=== PATIENT | female | born 1940 | race Caucasian/White ===

== ENCOUNTER 2022-07-10 17:47 | Observation (INO) | payer MEDICARE, SELFPAY ==
--- NOTE | ~2022-07-10 | XR_ITS ---
EXAMINATION: XR chest 1V portable DATE: 07/10/2022 18:17 INDICATION: Hypertension. Dizziness, headache and weakness. TECHNIQUE: frontal view of the chest was obtained. COMPARISON: None FINDINGS: Mild right apical pleural-parenchymal scarring. Opacities at the left lower lung zone which could rep resent atelectasis or pneumonia. Mild linear atelectasis the lateral right midlung zone. No pleural e ffusion or pneumothorax. The cardiomediastinal silhouette is normal. Dual lead pacemaker seen with le ads projecting over the expected locations of the right atrium and right ventricle. There are bridgin g osteophytes at multiple levels in the spine, consistent with diffuse idiopathic skeletal hyperostos is (DISH). IMPRESSION: 1. Mild opacities at the left lower lung zone which could represent atelectasis or pneumonia. Reviewed, dictated and finalized at location A.
--- NOTE | ~2022-07-10 | CT_ITS ---
EXAMINATION: CT brain wo con DATE: 07/10/2022 18:40 INDICATION: Dizziness. Altered mental status. TECHNIQUE: Computed tomography (CT) of the head was performed without intravenous contrast. Sagittal and coronal reconstructions were performed. The mA was adjusted according to patient size. Iterative reconstruction technique was employed. The dose-length product was 605.33 mGy-cm. COMPARISON: None FINDINGS: No acute intracranial hemorrhage, acute infarction or abnormal extra axial fluid collection. There is mild scattered white matter hypoattenuation consistent with chronic small vessel ischemic disease. S ymmetric prominence of the sulci and subarachnoid spaces overlying the convexities consistent with mi ld age-appropriate diffuse cerebral volume loss. Ventricles are normal and symmetric. No mass/mass ef fect. Changes of bilateral intraocular lens replacement. The orbits, paranasal sinuses and mastoid ai r cells are normal. Intracranial calcified cerebral atherosclerosis is noted. IMPRESSION: 1. No acute intracranial process. 2. Age-related changes including mild diffuse volume loss and mild scattered white matter hypoattenua tion consistent with chronic small vessel ischemic disease. Reviewed, dictated and finalized at location A. IMPRESSION: 1. No acute intracranial process. 2. Age-related changes including mild diffuse volume loss and mild scattered wh ite matter hypoattenuation consistent with chronic small vessel ischemic diseas e.
--- NOTE | ~2022-07-10 | CT_ITS ---
EXAMINATION: CTA BRAIN/CAROTID DATE: 07/10/2022 21:42 INDICATION: Aphasia and dizziness. TECHNIQUE: Computed tomographic angiography (CTA) of the head and neck was performed with 100 mL Omni paque-350 intravenous contrast. Multiplanar reconstructions and maximum intensity projection 3D-recon structions of the carotid arteries and of the intracranial arteries were created by the technologist on a separate workstation. Automated exposure control and iterative reconstruction technique were emp loyed.The dose-length product was 1005.43 mGy-cm. COMPARISON: Head CT dated 07/10/2022 at 6:31 PM FINDINGS: Carotid arteries: Atherosclerotic calcifications along the normal caliber aortic arch and at the origins of the great v essels without hemodynamically significant stenosis or dissection. There is 60% stenosis of the right carotid bulb relative to normal distal artery lumen diameter (NASCET criteria). There is 70% stenosi s of the left carotid bulb relative to normal distal artery lumen diameter. Cervical soft tissues are unremarkable. Mild emphysema in the visualized portions of the mid to upper lungs. Superior mediasti num is unremarkable. Moderate to severe cervical spondylosis. Intracranial arteries Extensive atherosclerotic calcifications along the parotid carotid siphons without hemodynamically si gnificant stenosis. There is no hemodynamically significant stenosis in the vertebral, basilar and in ternal carotid arteries. Vertebral arteries are codominant. 2 x 3 mm saccular aneurysm arising from t he supraclinoid segment of the left internal carotid artery. Both A1 and P1 segments are patent. The re is also a patent anterior communicating artery. Cerebral arterial arborization appears symmetric. No abnormally enhancing brain lesions identified. IMPRESSION: 1. 60% stenosis of the right carotid bulb relative to normal distal artery lumen diameter (NASCET cri teria). 2. 70% stenosis of the left carotid bulb relative to normal distal artery lumen diameter. 3. No significant hemodynamically significant stenosis of the cerebral arteries. 4. 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 5. Mild emphysema. 6. Moderate to severe cervical spondylosis. Reviewed, dictated and finalized at location A. IMPRESSION: 1. 60% stenosis of the right carotid bulb relative to normal distal artery lume n diameter (NASCET criteria). 2. 70% stenosis of the left carotid bulb relative to normal distal artery lumen diameter. 3. No significant hemodynamically significant stenosis of the cerebral arteries . 4. 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 5. Mild emphysema. 6. Moderate to severe cervical spondylosis.
[2022-07-10 17:54] VITALS: BP 179/74; PULSE 76; RESP 18; TEMP 36.4; O2SAT 98
--- NOTE | 2022-07-10 17:55 | ECG_ITS ---
Measurements Intervals [place] Rate: 77 P: 85 MN: 257 QRS: -21 QRSD: 118 T: 63 QT: 398 QTc: 453 Interpretive Statements ELECTRONIC ATRIAL PACEMAKER INTRAVENTRICULAR CONDUCTION DELAY CANNOT RULE OUT SEPTAL INFARCT, AGE INDETERMINATE INFERIOR INFARCT, AGE INDETERMINATE BORDERLINE ST-T WAVE ABNORMALITY- HIGH LATERAL LEADS BASELINE ARTIFACT- I, II, III, AVR, AVL, AVF ABNORMAL ECG NO PREVIOUS ECG AVAILABLE FOR COMPARISON Electronically Signed On 07-10-2022 21:53:21 CDT by Derrick Martin D.O.
[2022-07-10 18:34] LABS: Hemoglobin 14.1 g/dL (12.0-15.0); Mean Corpuscular HGB Conc 32.8 g/dl (32-36); Mean Corpuscular Hemoglobin 31.2 pg (26-34); Mean Corpuscular Volume 95.1 fl (80-100); Mean Platelet Volume 9.3 fl (7.4-10.4); Platelet Count Result 272 k/mm3 (150-375); Red Blood Count 4.52 M/mm3 (4.2-5.4); Red Cell Distribution Width 14.3 % (11.5-14.5); White Blood Count 6.8 K/mm3 (4.5-10.0)
[2022-07-10 18:46] LABS: INR 1.9; Prothrombin Time 20.7 Seconds (11.1-14.7)
[2022-07-10 18:47] LABS: Alanine Aminotransferase 35 U/L (6-35); Albumin Level 4.7 g/dL (3.5-5.1); Alkaline Phosphatase 119 U/L (38-126); Anion Gap 14 mmol/L (8-16); Aspartate Amino Transferase 46 U/L (14-36); Bilirubin,Total 0.4 mg/dL (0.2-1.3); Blood Urea Nitrogen 25 mg/dL (7-17); Calcium 9.4 mg/dL (8.4-10.2); Carbon Dioxide 26 mmol/L (22-30); Chloride 97 mmol/L (98-107); Estimated CRCL calculation 37 ml/min; Estimated Glomerular Filt Rate 60; Glucose 97 mg/dL (65-110); Partial Thromboplastin Time 45.2 SECONDS (22.3-36.8); Potassium 4.2 mmol/L (3.4-5.0); Sodium 137 mmol/L (137-145)
[2022-07-10 18:49] VITALS: BP 166/77; PULSE 75; RESP 16; O2SAT 98
[2022-07-10 18:58] LABS: Troponin I < 0.012 ng/mL (0.000-0.034)
[2022-07-10 19:00] LABS: Band Neutrophils Percent 1 % (0-6); Basophils Absolute Manual 0.06 K/mm3 (0.0-0.1); Basophils Percent Manual 1 % (0-1); Lymphocytes Absolute Manual 2.04 K/mm3 (1.1-4.5); Lymphocytes Percent Manual 30 % (18-44); Monocytes Absolute Manual 1.08 K/mm3 (0.1-0.90); Monocytes Percent Manual 16 % (3-9); Neutrophils Percent Manual 52 % (46-73); Platelet Estimate Adequate (Adequate); Total Cells Counted 100
[2022-07-10 19:01] LABS: Schistocytes None Seen (NORMAL)
--- NOTE | 2022-07-10 19:09 | ED.GENADULT ---
HPI - General Adult General Chief complaint: Neuro Symptoms/Deficit <Melinda Rod PA-C - Last Filed: 07/11/22 02:41> Stated complaint: possible stroke - dizzy headache- dont feel good <NALLELY Londono Last Filed: 07/11/22 02:41> Time Seen by Provider: 07/10/22 18:19 <NALLELY Londono Last Filed: 07/11/22 02:41> Source: patient <NALLELY Londono Last Filed: 07/11/22 02:41> Mode of arrival: ambulatory <NALLELY Londono Last Filed: 07/11/22 02:41> Limitations: no limitations <NALLELY Londono Last Filed: 07/11/22 02:41> History of Present Illness HPI narrative: Patient is an 81-year-old female who presents the ED with multiple complaints. Patient reports she has not felt well for the past couple days. She reports having dizziness, described as though her equilibrium is off and at times as though the room is spinning. She also reports having an intermittent headache, nausea, anorexia, general malaise, and aphasia, described as though she has trouble finding her words at times. She denies any fever, focal weakness of arm or leg, chest pain, difficulty breathing, new cough, congestion, abdominal pain, vomiting, diarrhea, numbness, tingling, vision changes, difficulty swallowing, tinnitus, otalgia. <NALLELY Londono Last Filed: 07/11/22 02:41> Related Data Home medications: Home Medications Medication Instructions Recorded Confirmed atorvastatin 10 mg tablet 10 mg PO HS 07/10/22 07/10/22 fluticasone furoate 200 1 inh inhalation DAILY 07/10/22 07/10/22 mcg-vilanterol 25 mcg/dose inhalation powder (Breo Ellipta) hydrochlorothiazide 12.5 mg capsule 12.5 mg PO DAILY 07/10/22 07/10/22 losartan 25 mg tablet 25 mg PO DAILY 07/10/22 07/10/22 montelukast 10 mg tablet 10 mg PO HS 07/10/22 07/10/22 (Singulair) tramadol 50 mg tablet 50 mg PO Q6-8H 07/10/22 07/10/22 verapamil 180 mg tablet,extended 180 mg PO BID 07/10/22 07/10/22 release <NALLELY Londono Last Filed: 07/11/22 02:41> Allergies/adverse reactions: Allergies Allergy/AdvReac Type Severity Reaction Status Date / Time No Known Allergies Allergy Verified 07/10/22 17:56 <Melinda Rod PA-C - Last Filed: 07/11/22 02:41> Review of Systems Review of Systems: CONSTITUTIONAL: Reports malaise, anorexia. Denies fever, chills, or sweats. EYES: Denies visual changes. ENT: Denies rhinorrhea, congestion, sore throat, tinnitus, or otalgia. CARDIOVASCULAR: Denies chest pain, palpitations. RESPIRATORY: Denies cough or dyspnea. GASTROINTESTINAL: Reports nausea. Denies abdominal pain, vomiting, or diarrhea. GENITOURINARY: Denies dysuria or hematuria. NEUROLOGIC: Reports dizziness, headache, aphasia/word finding difficulty. Denies tingling, numbness, or focal weakness. <NALLELY Londono Last Filed: 07/11/22 02:41> All systems reviewed & are unremarkable except as noted in HPI and below <NALLELY Londono Last Filed: 07/11/22 02:41> PMFSH Past Medical History Medical History: Medical History Atrial fibrillation COPD (chronic obstructive pulmonary disease) History of pacemaker Hyperlipidemia Hypertension <NALLELY Londono Last Filed: 07/11/22 02:41> Surgical History Surgical History: Surgical History History of permanent cardiac pacemaker placement <NALLELY Londono Last Filed: 07/11/22 02:41> Family History Family History: Family History Father Acute myocardial infarction Mother Lung cancer <Melinda Rod PA-C - Last Filed: 07/11/22 02:41> Social History Social History: Social History Smoking status: Former smoker Alcohol intak
[2022-07-10 19:29] LABS: Appearance Urine Cloudy (Clear); Bilirubin Urine Negative (Negative); Blood Urine Trace-intact (Negative); Color Urine Yellow (Yellow); Glucose Urine UA Negative (Negative); Ketones Urine Trace mg/dL (Negative); Leukocyte Esterase Ur 3+ LEU/UL (Negative); Nitrate Urine Negative (Negative); Protein Urine 1+ mg/dL (Negative); Urobilinogen Urine 0.2 mg/dL (<2.0)
[2022-07-10] MEDS: SODIUM CHLORIDE 0.9% IV 1,000 ML 999 ML IV CONT (19:35)
[2022-07-10 19:42] LABS: Add Urine Microscopic? YES; Amorphous Sediment Urine Few; Bacteria Urine Trace /hpf; Mucus Urine Rare /lpf; Squamous Epithelial Cell Urine Few /hpf (Few); WBC Clumps Urine Present /HPF; WBC Urine >75 /hpf
--- NOTE | 2022-07-10 22:11 | PM.IMHP ---
H&P: HPI History of Present Illness Date/Time: 07/10/22 22:11 Chief Complaint: imbalance Narrative: This is an 81-year-old female with past medical history significant for dyslipidemia, asthma /COPD, hypertension, atrial fibrillation. patient presents to the emergency room due to imbalance, headache, lightheadedness, chills. Preliminary workup in the emergency room was significant for urinalysis with 75+ wbc's present per high power field. She had a blood pressure systolic in the 200s at home, no vision changes, no chest pain, no palpitations, no syncope, no near syncope, no leg swelling, no pedal swelling, no pain or burning with urination, no nausea, no vomiting, no abdominal pain. a CT angiogram of head and neck was reported as: IMPRESSION: 1. 60% stenosis of the right carotid bulb relative to normal distal artery lumen diameter (NASCET criteria). 2. 70% stenosis of the left carotid bulb relative to normal distal artery lumen diameter. 3. No significant hemodynamically significant stenosis of the cerebral arteries. 4. 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 5. Mild emphysema. 6. Moderate to severe cervical spondylosis. CT of head IMPRESSION: 1. No acute intracranial process. 2. Age-related changes including mild diffuse volume loss and mild scattered white matter hypoattenuation consistent with chronic small vessel ischemic disease. Review of Systems Review of Systems: patient presents to emergency room with complaints of imbalance, chills, headache, elevated systolic blood pressure. Constitutional: Constitutional: Reports chills, Denies fever(s), Reports malaise, Denies night sweats, Reports poor appetite and Reports weakness Eyes: Eyes: Denies change in vision ENT: Denies dysphagia, Denies vertigo, Denies dizziness, Denies odynophagia and Reports disequilibrium Cardiovascular: Cardiovascular: Denies chest pain, Denies syncope, Denies irregular heart rhythm, Reports lightheadedness, Denies palpitations and Denies dyspnea on exertion Respiratory: Respiratory: Reports chest congestion, Reports cough, Denies excessive phlegm production, Denies pain on inspiration, Denies dyspnea and Denies dyspnea on exertion Gastrointestinal: Gastrointestinal: Denies abdominal pain, Denies dyspepsia, Denies heartburn, Denies diarrhea, Denies nausea and Denies vomiting Genitourinary: Genitourinary: Denies dysuria Musculoskeletal: Musculoskeletal: Reports abnormal gait, Denies joint swelling, Denies muscle weakness and Denies numbness Integumentary/Breasts: Skin/Breast: Denies rash Neurologic: Denies vertigo, Denies dizziness, Denies focal weakness and Denies Sensory deficit (Neuro) Psychiatric: Psychiatric: Reports no additional psychiatric complaints and Reports as per HPI Endocrine: Endocrine: Denies cold intolerance, Denies flushing, Denies heat intolerance, Denies polyphagia, Denies polydipsia and Denies palpitations Hematologic/Lymphatic: Hematologic/Lymphatic: Reports no additional hematologic/lymphatic complaints and Reports as per HPI Allergic/Immunologic: Allergic/Immunologic: Reports no additional allergic/immunologic complaints and Reports as per HPI PMFSH Past Medical History Medical History (Updated 07/11/22 @ 00:25 by Mason Hurtado MD) Atrial fibrillation COPD (chronic obstructive pulmonary disease) History of pacemaker Hyperlipidemia Hypertension Surgical History Surgical History (Updated 07/10/22 @ 20:16 by Melinda Rod PA-C) History of permanent cardiac pacemaker placement Family History Family History (Updated 07/10/22 @ 22:32 by Ivelisse Vera RN) Father Acute myocardial infarction Mother Lung cancer Social History Social History (Updated 07/10/22 @ 20:17 by Melinda Rod PA-C) Smoking status: Former smoker Alcohol intake: current Substance use: never Spiritual care concerns: No Meds Home Medications and
[2022-07-10 22:13] VITALS: BP 170/80; PULSE 82; RESP 16; O2SAT 100
--- NOTE | 2022-07-10 22:14 | PC.NURSE ---
Patient stated, You obviously don't know what your doing. I hate being here and you should never tell a person I hope you get better soon when you know someone doesn't feel good.
--- NOTE | 2022-07-10 22:30 | ADMGEN ---
This patient, Nichole Saucedo, was admitted to Medical Room 348-01. Patient/family oriented to hospital policies and general routines including ID bracelet, bed and alarms, visiting hours, pain management, procedures, bathroom and other care routines, personal items, smoking policy, room service/diet, and visiting hours. Information on how to activate the Rapid Response Team has been discussed. Patient/Family are encouraged to report perceived risks to care and to ask questions if they do not understand what they are told or what they should do.
[2022-07-10 22:31] VITALS: BMI 22.4
[2022-07-10] MEDS: VERAPAMIL HCL 180 MG TABLET ER PO (22:56)
[2022-07-11] VITALS: PULSE 73
--- NOTE | 2022-07-11 | ECHO_ITS ---
Patient Info Name: Nichole Saucedo Age: 81 years : 1940 Gender: Female Ht: 64 in Wt: 130 lbs BSA: 1.64 m2 HR: 90 bpm BP: 142 / 46 mmHg Technical Quality: Good Exam Date: 07/11/2022 3:07 PM Exam Location: [facility] Patient Status: Outpatient Admit Date: 07/10/2022 Staff Ordering Physician: Belinda Jimenez MD Lottery Office Manager: Kodak Gan RDCS, RT Attending Provider: Mason Hurtado MD Exam Type: CA echo doppler w bubble study Study Info Indications R42 - Dizziness and giddiness Complete two-dimensional, color flow and Doppler transthoracic echocardiogram is performed. Strain analysis performed. Summary 1. Complete two-dimensional, color flow and Doppler transthoracic echocardiogram is performed. 2. Left ventricular chamber dimension is normal. 3. Left ventricular systolic function is normal, estimated at 60-65%. 4. There is mildly increased left ventricular wall thickness. 5. The left ventricular diastolic function is grade I diastolic dysfunction. 6. E/e' 8 is minimally elevated. 7. Global longitudinal strain is normal at -18.0%. 8. Linear artifact in right ventricle suggestive of catheter(s), pacemaker lead(s), or ICD lead(s). 9. Linear artifact in the right atrium suggestive of catheter(s), pacemaker lead(s), or ICD lead(s). 10. There is mild aortic valve sclerosis. 11. There is mild aortic valve regurgitation. 12. There is trace tricuspid valve regurgitation. 13. No pulmonary hypertension, estimated pulmonary arterial systolic pressure is 26 mmHg. Left Ventricle E/e' 8 is minimally elevated. Global longitudinal strain is normal at -18.0%. Left ventricular chamber dimension is normal. Left ventricular systolic function is normal, estimated at 60-65%. There is mildly increased left ventricular wall thickness. The left ventricular diastolic function is grade I diastolic dysfunction. Right Ventricle Right ventricular systolic function is normal and with normal TAPSE 2.0 cm. Linear artifact in right ventricle suggestive of catheter(s), pacemaker lead(s), or ICD lead(s). Right ventricular chamber dimension is normal. Left Atria Left atrial chamber dimension is normal. Right Atria Linear artifact in the right atrium suggestive of catheter(s), pacemaker lead(s), or ICD lead(s). Right atrial chamber dimension is normal. Atrial Septum Agitated saline injection with and without valsalva maneuver opacified right side cardiac chambers without shunt to left side cardiac chambers. Intact interatrial septum visualized by 2D and agitated saline imaging. Aortic Valve The aortic valve is trileaflet. There is mild aortic valve sclerosis. There is no aortic valve stenosis. There is mild aortic valve regurgitation. Pulmonic Valve There is no pulmonic regurgitation. Mitral Valve There is no mitral valve stenosis. There is no mitral valve regurgitation. Tricuspid Valve There is trace tricuspid valve regurgitation. No pulmonary hypertension, estimated pulmonary arterial systolic pressure is 26 mmHg. Pericardium/Pleural There is no pericardial effusion. Inferior Vena Cava Normal inferior vena cava with >50% collapse upon inspiration consistent with normal right atrial pressure, 5 mmHg. Aorta The aortic root size at the sinus of Valsalva is normal. Left Ventricular Outflow Tract Name Value Normal
[2022-07-11 04:00] VITALS: PULSE 70
[2022-07-11 05:20] LABS: INR 1.7; Prothrombin Time 19.6 Seconds (11.1-14.7)
[2022-07-11 06:00] VITALS: BP 142/46; PULSE 82; RESP 16; TEMP 36.7; O2SAT 97
[2022-07-11] MEDS: FLUTICASONE/SALMETEROL 230-21 MCG INHALER 1 PUFF 2 PUFF INHALATION (08:28)
--- NOTE | 2022-07-11 08:41 | WPDNEURCNPN ---
Assessment and Plan Assessment and plan (1) Imbalance: Code(s): R26.89 - Other abnormalities of gait and mobility Status: Acute Assessment and Plan: Ms. Saucedo is an 81 year old female with a history of atrial fibrillation and COPD presenting with several day history of dizziness. She was found to have a UTI. CT head negative, CTA showed bilateral carotid stenosis. Exam significant for horizontal nystagmus. No other focal findings. Plan - Recommend MRI brain w/o contrast if pacemaker is MRI compatible - Refer to outpatient vestibular PT - Follow-up in [facility] in 6-8 weeks Consult date: 07/11/22 Time Seen: 08:41 Reason for consult: dizziness HPI: Nichole Saucedo is a 81 year old female with a history of atrial fibrillation presenting with dizziness that started two days ago. She describes the sensation as the room spinning. She has also been having some word-finding difficulties as well. She was evaluated in [place] ED where she had a CT head was negative for acute/subacute changes and CTA head/neck showed 60% stenosis in the R carotid bulb and 70% stenosis of the left carotid bulb. She was found to have a UTI and started on Rocephin. She was also noted to have bilateral cerumen impaction which was cleaned out. She denies any other symptoms such as diplopia, dysathria, dysphagia, focal numbness/weakness. She feels less dizzy this AM, but still has some dizziness. Review of Systems Constitutional: Constitutional: Reports no additional constitutional complaints Eyes: Eyes: Reports no additional eye complaints ENT: Reports system reviewed and no additional complaints, except as documented and Reports Normal hearing present Cardiovascular: Cardiovascular: Reports no additional cardiovascular complaints Respiratory: Respiratory: Reports no additional respiratory complaints Gastrointestinal: Gastrointestinal: Reports no additional gastrointestinal complaints Genitourinary: Genitourinary: Reports no additional female genitourinary complaints Musculoskeletal: Musculoskeletal: Reports no additional musculoskeletal complaints Integumentary/Breasts: Skin/Breast: Reports system reviewed and no additional complaints, except as docu Neurologic: Reports as per HPI Psychiatric: Psychiatric: Reports no additional psychiatric complaints [facility] Past Medical History Medical History Atrial fibrillation COPD (chronic obstructive pulmonary disease) History of pacemaker Hyperlipidemia Hypertension Surgical History Surgical History History of permanent cardiac pacemaker placement Family History Family History Father Acute myocardial infarction Mother Lung cancer Social History Social History Smoking status: Former smoker Alcohol intake: current Substance use: never Spiritual care concerns: No Meds Home Medications and Allergies Home Medications Medication Instructions Recorded Confirmed Type atorvastatin 10 mg tablet 10 mg PO HS 07/10/22 07/10/22 History fluticasone furoate 200 1 inh inhalation DAILY 07/10/22 07/10/22 History mcg-vilanterol 25 mcg/dose inhalation powder (Breo Ellipta) hydrochlorothiazide 12.5 mg capsule 12.5 mg PO DAILY 07/10/22 07/10/22 History losartan 25 mg tablet 25 mg PO DAILY 07/10/22 07/10/22 History montelukast 10 mg tablet 10 mg PO HS 07/10/22 07/10/22 History (Singulair) tramadol 50 mg tablet 50 mg PO Q6-8H 07/10/22 07/10/22 History verapamil 180 mg tablet,extended 180 mg PO BID 07/10/22 07/10/22 History release warfarin 2 mg tablet 2 mg PO EVERY OTHER DAY 07/10/22 07/10/22 History warfarin 2.5 mg tablet 2.5 mg PO EVERY OTHER DAY 07/10/22 07/10/22 History Allergies Allergy/AdvReac Type Severity Reaction Status Date / Time No Known
[2022-07-11 09:15] VITALS: PULSE 70
[2022-07-11] MEDS: LOSARTAN POTASSIUM 25 MG TABLET PO (10:03)
[2022-07-11] MEDS: hydroCHLOROthiazide 12.5 MG CAPSULE PO (10:03)
[2022-07-11] MEDS: VERAPAMIL HCL 180 MG TABLET ER PO (10:03)
--- NOTE | 2022-07-11 10:12 | PC.NURSE ---
Pt insisting she should walk the cuevas because she is deteriorating . She was found out of her room and argumentative about returning to he room. She insist she feels much better and would like to return home. She has requested to no longer wear the heart monitor and it was removed at 10:10
[2022-07-11 14:00] VITALS: BP 153/63; PULSE 79; RESP 16; TEMP 35.9; O2SAT 100
--- NOTE | 2022-07-11 16:08 | PM.DS ---
DS: Admitting Diagnosis Discharge Date 07/11/2022 Admitting Diagnosis imbalance DS: Discharge Diagnosis Discharge Diagnosis (1) UTI (urinary tract infection): Code(s): N39.0 - Urinary tract infection, site not specified Status: Acute Assessment and Plan: started on ceftriaxone await cultures (2) Imbalance: Code(s): R26.89 - Other abnormalities of gait and mobility Status: Acute Assessment and Plan: CTA of head and neck reviewed no large vessel occlusion CT of the head no acute abnormalities PT OT when clinically able (3) COPD (chronic obstructive pulmonary disease): Code(s): J44.9 - Chronic obstructive pulmonary disease, unspecified Status: Acute Assessment and Plan: not actively wheezing (4) Atrial fibrillation: Code(s): I48.91 - Unspecified atrial fibrillation Status: Acute Assessment and Plan: rate controlled and anticoagulated (5) Uncontrolled hypertension: Code(s): I10 - Essential (primary) hypertension Status: Acute Assessment and Plan: restart home meds DS: Summary Hospital Course Reason for hospitalization: Chief Complaint: ?imbalance Narrative: This is an 81-year-old female with past medical history significant for dyslipidemia, asthma /COPD, hypertension, atrial fibrillation. patient presents to the emergency room due to? imbalance, headache, lightheadedness, chills.? Preliminary workup in the emergency room was significant for urinalysis with 75+ wbc's present per high power field.? She had a blood pressure systolic in the 200s at home, no vision changes, no chest pain, no palpitations, no syncope, no near syncope, no leg swelling, no pedal swelling, no pain or burning with urination, no nausea, no vomiting, no abdominal pain. a CT angiogram of head and neck was reported as: IMPRESSION: 1. 60% stenosis of the right carotid bulb relative to normal distal artery lumen diameter (NASCET criteria). 2. 70% stenosis of the left carotid bulb relative to normal distal artery lumen diameter. 3. No significant hemodynamically significant stenosis of the cerebral arteries. 4. 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 5. Mild emphysema. 6. Moderate to severe cervical spondylosis. ?CT of head IMPRESSION: 1. No acute intracranial process. 2. Age-related changes including mild diffuse volume loss and mild scattered white matter hypoattenuation consistent with chronic small vessel ischemic disease. Hospital Course: Patient is insisting to be discharged today, patient INR is subtherapeutic, will stop warfarin and start patient on Eliquis 2.5mg daily, will give 1st dose today before discharging her, neurologist has refer patient to vestibular PT, patient to follow up with neurologist in 6-8 weeks, patient to follow up with her primary care provider as soon as possible, patient is instructed if any symptoms redevelop to go to nearest ER. Time Spent with Patient Time attestation: Total time spent providing and/or coordinating discharge services: Exam Narrative: patient is ambulating in the room Patient is comfortable, NAD HEENT: eyes are clear and none icteric LUNGS: normal respiratory effort ABD: not distended Lower extremities: no edema SKIN: nonjaundiced Neuro: grossly intact. DS: Data Data Completed and Pending Labs on day of discharge: Labs from last 24 hours 07/11/22 07/10/22 07/10/22 05:01 19:23 18:27 WBC RBC Hgb Hct MCV MCH MCHC RDW Plt Count MPV Immature Gran % (Auto) Neut % (Auto) Lymph % (Auto) Jessamine % (Auto) Eos % (Auto) Baso % (Auto) Lymph # (Auto) Jessamine # (Auto) Eos # (Auto) Baso # (Auto) Abs Immat Gran (auto) Absolute Neuts (auto) Absolute Nucleated RBC Total Counted Neutrophils % (Manual) Band Neutrophils % Lymphocytes % (Manual) Monocyte
[2022-07-11] MEDS: ASPIRIN 81 MG ENTERIC TABLET PO (16:41)
[2022-07-11] MEDS: APIXABAN 2.5 MG TABLET PO (16:41)
== END 2022-07-11 17:10 | disposition home or self-care (01) ==
LOC: ANHED 21:28 → ANH3MED 22:18
PROVIDERS: Physician Assistant; Admitting Provider Internal Medicine; Emergency Provider General Practice; Visit Provider Family Medicine
DX: N30.01 Acute cystitis with hematuria (principal); R26.89 Other abnormalities of gait and mobility; J44.9 Chronic obstructive pulmonary disease, unspecified; I48.91 Unspecified atrial fibrillation; I51.89 Other ill-defined heart diseases; R47.01 Aphasia; R51.9 Headache, unspecified; R11.0 Nausea; R63.0 Anorexia; Z68.22 Body mass index [BMI] 22.0-22.9, adult; E78.5 Hyperlipidemia, unspecified; I65.23 Occlusion and stenosis of bilateral carotid arteries; H61.23 Impacted cerumen, bilateral; R29.701 NIHSS score 1; R91.8 Other nonspecific abnormal finding of lung field; R90.82 White matter disease, unspecified; I45.4 Nonspecific intraventricular block; R94.31 Abnormal electrocardiogram [ECG] [EKG]; I35.8 Other nonrheumatic aortic valve disorders; G31.9 Degenerative disease of nervous system, unspecified; Z95.0 Presence of cardiac pacemaker; I72.0 Aneurysm of carotid artery; M47.812 Spondylosis without myelopathy or radiculopathy, cervical region; I35.0 Nonrheumatic aortic (valve) stenosis; Z87.891 Personal history of nicotine dependence; Z79.51 Long term (current) use of inhaled steroids; Z79.891 Long term (current) use of opiate analgesic; Z79.899 Other long term (current) drug therapy; Z82.49 Family history of ischemic heart disease and other diseases of the circulatory system; Z79.01 Long term (current) use of anticoagulants
CPT/HCPCS: 36415; 69209; 70450; 70496; 70498; 71045; 80053; 81001; 84484; 85025; 85610; 85730; 87086; 87088; 93005; 93306; 94640; 96361; 96365; 96375; 97161; 99285; A9270; G0378; J0696; J7030; Q9967

== ENCOUNTER 2023-09-04 14:30 | Outpatient (RCR) | payer MEDICARE, SELFPAY ==
--- NOTE | 2023-06-19 18:20 | PTOPEVAL1 ---
Assessment and note entered by Jacquelyn Campbell, PT Evaluation Information Assessment Status Evaluation Diagnosis dizziness, giddiness Addn. Therapy conditions BPPV, oth. abnormalities of gait and mobility Subjective Information October 2022 dizziness started. Woke up and didn't feel good. Started feeling worse, has her son take her to the doctor. Was offered therapy at the time but was hoping symptoms would resolve Has been more active to try to get better. Symptoms have improved but not resolved. Has to stand on 5 gallon bucket to get on her large horse. Once is on her horse he is a good horse. Hasn't ridden as much with this issue. The difficulty getting on the bucket to get on her horse. Laying down improved symptoms. Reported Pain Level Pain Score 3: Self Report Assessment PT Clinical Summary Pt presents with dizziness symptoms that began in October. She had gone to the hospital and was found to have carotid stenosis bilaterally. Also has history of pacemaker placement and a-fib as well as COPD. Evaluation shows decreased static balance with small base of support testing, worsens with eyes closed significantly suggesting inner ear component of balance deficit likely also causing dizziness. No nystagmus noted with testing nor was there one side worse than the other with testing this date. However presentation and history suggestive of BPPV unknown side with residual balance deficits. Pt does have follow up with sash assembler and MRI for stenosis follow up as well to monitor as possible cause for symptoms. Pt will benefit from physical therapy to improve balance deficits, monitor BPPV with KENO ATTENDANT as needed, and educate on appropriate and safe home program for balance training to allow greatest and safest independence. Plan of Care Interventions Neuro Re-education,Patient/Caregiver Educati, Therapeutic Activities,Therapeutic Exercise,Self- Care/Home Management PT Services Indicated Yes Treatment Frequency and 1-2x weekly x 4 weeks Duration These treatments will address the objective and functional deficits as defined above. The patient will be advanced safely and appropriately in order for the patient to progress towards his/her prior level of function. Additional exercises will be introduced and as well as a comprehensive home exercise program upon discharge, if
--- NOTE | 2023-06-19 18:23 | OPREHPOC ---
Outpatient Therapy Plan of Care This is a Multidisciplinary Plan of Care that may contain components documented by all disciplines (PT, OT, and ST.) PT Problem 1 PT Problem #1 Knowledge Deficit PT Goal 1 Goal Pt will be independent in HEP Target Visit 8 PT Goal 2 Goal Pt will demo understanding of prognosis Target Visit 16 PT Problem 2 PT Problem #2 Impaired Balance PT Goal 1 Goal Pt will demo tandem stance R/L foot forward x 15 seconds without SHIP WIRER with eyes open on firm surface Target Visit 16 PT Goal 2 Goal Pt will demo ability to sales service coordinator tandem stance R/L forward on firm surface with eyes closed x 10 seconds without SHIP WIRER PT Problem 3 PT Problem #3 Impaired Sensation PT Goal 1 Goal Pt will report resolution of symptoms with activities Target Visit 16
--- NOTE | 2023-07-05 15:36 | PCPTNOTE ---
Patient did not show up for scheduled appointment this date.
--- NOTE | 2023-07-05 15:40 | PCPTNOTE ---
Patient called & cancelled scheduled appointment this date due to forgetting her appointment.
--- NOTE | 2023-07-15 16:49 | PTOPPROG ---
Assessment and note entered by Jacquelyn Campbell, PT Assessment Status Progress Diagnosis dizziness, giddiness Subjective Information Reports had chest pains after last therapy session . Fell Saturday night at the races, left foot was dragging because she was tired. Was in the dark walking and the ground changed to an uneven surface. Thinks there is improvement in her dizziness symptoms. Had some soreness in her legs so some difficulty getting up on her horse but after riding felt less soreness. Self-percieved improvement: 25% Bendign forward is still problematic, and has trained herself not to make quick head turns Still loosing breathe with activity Caroitids are left side 82% blocked, right side over 70% blocked Had one episode of feeling like was going to black out but doesn't remember when but also had an episode in therapy. Assessment PT Clinical Summary Pt reports feeling improved overall. Cont to have difficulty with bending over, head movements, getting up and down from horse. Pt reports no increased symptoms with activities today, has previously been educated if certain symptoms worsen she should call her merchandise support associate to move appointment forward. Pt has been educated her symptoms may be partially to her heart or carotid arteries being partially clogged however she reports also feeling improved overall. Thus patient will benefit from continued therapy to continue improvement in balance and body awareness . Plan of Care Interventions Neuro Re-education,Patient/Caregiver Educati, Therapeutic Activities,Therapeutic Exercise,Self- Care/Home Management PT Services Indicated Yes Treatment Frequency and 1-2x weekly x 4 weeks Duration These treatments will address the objective and functional deficits as defined above. The patient will be advanced safely and appropriately in order for the patient to progress towards his/her prior level
--- NOTE | 2023-09-04 15:11 | PTOPDC ---
Assessment and note entered by Jacquelyn Campbell, PT Evaluation Information Assessment Status Discharge Diagnosis dizziness, giddiness Subjective Information Is now keeping track of her blood pressure and heart rate when she feels woobly Last time in therapy felt terrible , tailor's aide stopped one medication and changed one to night time. Gerontological Nurse Practitioner updated medication Is feeling better today but thought about calling ambulance Saturday because was feeling awful. Vomitted also. Dizziness is improved. Took her walk this afternoon. Reported Pain Level Pain Score 0: Self Report Assessment PT Clinical Summary Pt has attended 8 sessions of physical therapy. Initially was making progress then plateaud and began having other symptoms suggestive of cardiopulmonary background. Pt has since returned to both MD's, has had medication changes and variations of symptoms. Balance testing today is unchanged from last session. Pt educated her symptoms no longer appear to be responding to physical therapy, to continue following up with tailor's aide and production line manager related to her symptoms. Thus patient is being discharged from therapy due to max benefit being met at this time. Plan of Care PT Services Indicated No
== END 2023-09-04 15:18 | disposition home or self-care (01) ==
LOC: ANHHIPT 14:30
PROVIDERS: Visit Provider Student in an Organized Health Care Education/Training Program
DX: R42 Dizziness and giddiness (principal)
CPT/HCPCS: 97110; 97112; 97162; 97530; 97750

== ENCOUNTER 2024-02-03 14:00 | Emergency (ER) | payer MEDICARE, SELFPAY ==
[2024-02-03] VITALS (18 sets, daily range): BP systolic 151–208; BP diastolic 70–108; PULSE 70–87; RESP 12–21; TEMP 36.4–36.7; O2SAT 97–100
--- NOTE | ~2024-02-03 | CT_ITS ---
EXAMINATION: CT facial & cervical spine wo DATE: 02/03/2024 14:26 INDICATION: Status post fall. Trauma. Head and neck pain. TECHNIQUE: Computed tomography (CT) of the maxillofacial region and cervical spine was performed with out intravenous contrast. The dose-length product was 212.13 mGy-cm. Automated exposure control and i terative reconstruction technique were employed. COMPARISON: None FINDINGS: MAXILLOFACIAL CT: There is a large frontal scalp hematoma. No acute facial fracture. Orbits intact. No air-fluid levels in the paranasal sinuses. Mandible intact. Temporomandibular joints demonstrate degenerative changes , left greater than right. Zygomatic arches are normal. Pterygoid plates within normal limits. CERVICAL SPINE CT: Straightening of cervical lordosis. There is disc narrowing and endplate hypertrophy at C3-4 through C7-T1. There is degenerative anterolisthesis at C3-4 and T1-2. Odontoid process is normal. There is m ultilevel uncinate and facet hypertrophy. There is carotid atherosclerosis. IMPRESSION: 1. No acute abnormality of the facial bones or cervical spine. Reviewed, dictated and finalized at location B.
--- NOTE | ~2024-02-03 | CT_ITS ---
EXAMINATION: CT brain wo con DATE: 02/03/2024 14:25 INDICATION: Status post fall. TECHNIQUE: Computed tomography (CT) of the head was performed without intravenous contrast. The dose- length product was 605.33 mGy-cm. Automated exposure control and iterative reconstruction technique w ere employed. COMPARISON: None FINDINGS: There is a large frontal scalp hematoma. No ventriculomegaly or midline shift. No intracran ial hemorrhage, infarction, mass or mass effect. There is intracranial atherosclerosis. No depressed skull fractures. Paranasal sinuses and mastoids are pneumatized. There are scattered mild periventricular and subcortical white matter changes, most likely related to small vessel ischemic disease (microangiopathy). IMPRESSION: 1. No acute intracranial abnormality. Reviewed, dictated and finalized at location B.
--- NOTE | 2024-02-03 14:06 | ED.GENADULT ---
HPI - General Adult General Chief complaint: Head Injury <Pretty Barrera February, - Last Filed: 02/03/24 14:09> Stated complaint: fell one week ago, blood thinners <Pretty Barrera February, Last Filed: 02/03/24 14:09> Time Seen by Provider: 02/03/24 14:06 <Pretty Barrera February, - Last Filed: 02/03/24 14:09> Focused HPI: Nichole Saucedo is an 83 y/o female who presents with reports of having a ground level fall hitting her head on her piano about 8 days ago. She is unsure of LOC/ she is on Eliquis / moderate facial bruising and hematoma to right forehead/ complains of headache GENERAL: no acute distress. HEAD: Normocephalic, facial bruising / large forehead hematoma CHEST: ?No respiratory distress. HEART: Regular rate and rhythm.? NEURO: ?Alert and oriented x3. Patient screened in triage and initial orders placed.? ?Additional care and disposition to be based upon?diagnostic testing and treatment. <Pretty Barrera February, Last Filed: 02/03/24 14:09> Related Data Home medications: Home Medications Medication Instructions Recorded Confirmed atorvastatin 10 mg tablet 10 mg PO HS 07/10/22 06/05/23 fluticasone furoate 200 1 inh inhalation DAILY 07/10/22 06/05/23 mcg-vilanterol 25 mcg/dose inhalation powder (Breo Ellipta) hydrochlorothiazide 12.5 mg capsule 12.5 mg PO DAILY 07/10/22 06/05/23 losartan 25 mg tablet 25 mg PO DAILY 07/10/22 06/05/23 montelukast 10 mg tablet 10 mg PO HS 07/10/22 06/05/23 (Singulair) tramadol 50 mg tablet 50 mg PO Q6-8H 07/10/22 06/05/23 verapamil 180 mg tablet,extended 180 mg PO BID 07/10/22 06/05/23 release <Pretty Barrera February, Last Filed: 02/03/24 14:09> Allergies/adverse reactions: Allergies Allergy/AdvReac Type Severity Reaction Status Date / Time No Known Allergies Allergy Verified 02/03/24 14:09 <Pretty Barrera February, - Last Filed: 02/03/24 14:09> PMFSH Past Medical History Medical History: Medical History Atrial fibrillation COPD (chronic obstructive pulmonary disease) History of pacemaker Hyperlipidemia Hypertension <Pretty Parker Last Filed: 02/03/24 14:09> Surgical History Surgical History: Surgical History History of permanent cardiac pacemaker placement <Pretty Barrera February, Last Filed: 02/03/24 14:09> Family History Family History: Family History Father Acute myocardial infarction Mother Lung cancer <Pretty Barrera February, Last Filed: 02/03/24 14:09> Social History Social History: Social History Smoking status: Former smoker Alcohol intake: current Substance use: never Substance use type: does not use Lack of Transportation: No Lack of Food: Never True Current Housing: I Have Housing Concerned About Future Housing: No Difficulty Paying Gas/Electric Bills: No Difficulty Paying for Meds: YES Currently Unemployed: No Education: Associate Degree Difficulty w/ Childcare or Family Care: No Living arrangements: alone Occupation/Education: retired Gender identity (if verbalized by the patient): Female Sexual Orientation (if Verbalized by the Patient): Straight or Heterosexual Spiritual care concerns: No <Pretty Barrera February, Last Filed: 02/03/24 14:09> Exam Narrative: GENERAL: Well-appearing, well-nourished, and in no acute distress. HEAD: Normocephalic, hematoma to the forehead with contusion forehead down to the anterior neck. Yelling. ENT: Mucous membranes moist. NECK: Supple. CHEST: Clear to auscultation. No respiratory distress. HEART: Regular rate and rhythm. Normal peripheral pulses. EXTREMITIES: Normal range of motion. No edema. SKIN: Warm, dry, no rash. NEURO: Alert and oriented x3. PSYCH: Normal mood and affect. <Deion Morocho MD
[2024-02-03 14:44] LABS: Basophils Absolute Auto 0.1 K/mm3 (0.0-0.1); Basophils Percent Auto 0.4 % (0.2-1.2); Eosinophils Absolute Auto 0.1 K/mm3 (0-0.3); Eosinophils Percent Auto 1.2 % (0-4.4); Hematocrit 34.3 % (37.0-47.0); Hemoglobin 11.2 g/dL (12.0-15.0); Immature Granulocyte Absolute 0.09 K/mm3 (0.00-0.031); Immature Granulocyte Percent A 0.8 % (0-0.5); Lymphocytes Absolute Auto 1.88 K/mm3 (0.9-3.2); Lymphocytes Percent Auto 16.2 % (18.3-44.2); Mean Corpuscular HGB Conc 32.7 g/dl (32-36); Mean Corpuscular Hemoglobin 29.2 pg (26-34); Mean Corpuscular Volume 89.3 fl (80-100); Mean Platelet Volume 8.9 fl (7.4-10.4); Monocytes Absolute Auto 1.2 K/mm3 (0.1-0.6); Monocytes Percent Auto 9.9 % (2.6-8.5); Neutrophils Absolute Auto 8.3 K/mm3 (1.3-6.7); Neutrophils Percent Auto 71.5 % (45.5-73.1); Platelet Count Result 355 k/mm3 (150-375); Red Blood Count 3.84 M/mm3 (4.2-5.4); Red Cell Distribution Width 17.2 % (11.5-14.5); White Blood Count 11.6 K/mm3 (4.5-10.0)
[2024-02-03 14:54] LABS: Prothrombin Time 54.1 Seconds (11.1-14.7)
[2024-02-03 14:55] LABS: Alanine Aminotransferase 27 U/L (6-35); Albumin Level 4.4 g/dL (3.5-5.1); Alkaline Phosphatase 115 U/L (38-126); Anion Gap 7 mmol/L (4-12); Aspartate Amino Transferase 36 U/L (14-36); Bilirubin,Total 0.7 mg/dL (0.2-1.3); Blood Urea Nitrogen 35 mg/dL (7-17); Calcium 9.6 mg/dL (8.4-10.2); Carbon Dioxide 27 mmol/L (22-30); Chloride 99 mmol/L (98-107); Estimated CRCL calculation 36 ml/min; Estimated Glomerular Filt Rate 60; Glucose 107 mg/dL (65-110); Potassium 4.1 mmol/L (3.4-5.0); Sodium 133 mmol/L (137-145)
[2024-02-03 14:56] LABS: Partial Thromboplastin Time 110.2 Seconds (22.3-36.8)
--- NOTE | 2024-02-03 14:58 | PC.NURSE ---
Larg hematoma to middle of forehead, small hematoma to right side of forehead. Tender to touch.
[2024-02-03 15:04] LABS: INR 5.4
[2024-02-03] MEDS: HYDROcodone/acetaminophen (*CRX) 5-325 MG TABLET 1 TAB PO (15:15)
== END 2024-02-03 17:42 | disposition home or self-care (01) ==
PROVIDERS: Nurse Practitioner Family; Emergency Provider Emergency Medicine
DX: S00.83XA Contusion of other part of head, initial encounter (principal); R79.1 Abnormal coagulation profile; I48.91 Unspecified atrial fibrillation; I10 Essential (primary) hypertension; J44.9 Chronic obstructive pulmonary disease, unspecified; E78.5 Hyperlipidemia, unspecified; Z95.0 Presence of cardiac pacemaker; Z87.891 Personal history of nicotine dependence; Z79.01 Long term (current) use of anticoagulants; Z79.82 Long term (current) use of aspirin; W01.198A Fall on same level from slipping, tripping and stumbling with subsequent striking against other object, initial encounter
CPT/HCPCS: 36415; 70450; 70486; 72125; 80053; 85025; 85610; 85730; 99284; A9270

== ENCOUNTER 2025-07-03 07:37 | Emergency (ER) | payer MEDICARE, SELFPAY ==
--- NOTE | ~2025-07-03 | CT_ITS ---
EXAMINATION: CT soft tissue neck w con DATE: 07/03/2025 08:42 INDICATION: Postsurgical bleeding in the neck. TECHNIQUE: Computed tomography (CT) of the neck was performed with 75 mL Omnipaque-350 intravenous contrast. Automated exposure control and iterative reconstruction technique were employed. The dose-length product was 375.73 mGy-cm. COMPARISON: CT cervical spine 02/03/2024, neck CTA 07/10/2022 FINDINGS: There is mild emphysema. There is mild atelectasis bilaterally. There are likely changes of ocular lens replacement surgeries. There are changes of left-sided carotid endarterectomy. There is plaque in proximal right internal carotid artery with less than 50% stenosis relative to normal distal artery lumen diameter. There is soft tissue gas and soft tissue attenuation anterior to the thyroid and thyroid cartilage, consistent with postsurgical change. 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 There is severe cervical spondylosis. IMPRESSION: 1. Postsurgical change from left carotid endarterectomy. 2. 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 Reviewed, dictated and finalized at location E.
[2025-07-03 07:51] VITALS: BP 193/85; PULSE 94; RESP 14; TEMP 36.4; O2SAT 98
--- NOTE | 2025-07-03 07:54 | ED_ITS ---
HPI - General Adult General Chief complaint: Wound/Laceration Stated complaint: bleeding from surgical site (throat) Time Seen by Provider: 07/03/25 07:50 History of Present Illness HPI narrative: [age] old female presents to the emergency department for evaluation for bleeding from her surgical site. Patient did have carotid endarterectomy on at [facility] and started having bleeding on Saturday. Patient reports he was having some mild bleeding after surgery but when she restarted her Eliquis that the bleeding significantly worsened. Patient reports that blood for most of the day Saturday. Patient had stopped her Eliquis for approximately 3 days prior to the procedure. Patient reports he takes Eliquis for her atrial fibrillation. Patient was in a normal sinus rhythm Related Data Home Medications ?Medication ?Instructions ?Recorded ?Confirmed ?Last Taken ?Type atorvastatin 10 mg tablet 10 mg PO HS 07/10/22 3 07/09/22 History fluticasone furoate 200 1 inh inhalation DAILY 07/1006/05/23 Unknown History mcg-vilanterol 25 mcg/dose inhalation powder (Breo Ellipta) hydrochlorothiazide 12.5 mg capsule 12.5 mg PO DAILY 0 07/10/22 06/05/23 Unknown History losartan 25 mg tablet 25 mg PO DAILY 07/10/2205/15 Unknown History montelukast 10 mg tablet 10 mg PO HS 07/10/22 3 07/09/22 History (Singulair) tramadol 50 mg tablet 50 mg PO Q6-8H 07/10/2205/15 Unknown History verapamil 180 mg tablet,extended 180 mg PO BID 2 06/05/23 07/10/22 History release Allergies Allergy/AdvReac Type Severity Reaction Status Date / Time No Known Allergies Allergy Verified 07/03/25 07:53 Review of Systems 2 Review of Systems: All systems reviewed & are unremarkable except as noted in HPI and below PMFSH Past Medical History Medical History Atrial fibrillation COPD (chronic obstructive pulmonary disease) History of pacemaker Hyperlipidemia Hypertension Surgical History Surgical History History of permanent cardiac pacemaker placement Family History Family History Father Acute myocardial infarction Mother Lung cancer Social History Social History Smoking status: Former smoker Alcohol intake: current Substance use: never Substance use type: does not use Lack of Transportation: No Lack of Food: Never True Current Housing: I Have Housing Concerned About Future Housing: No Difficulty Paying Gas/Electric Bills: No Difficulty Paying for Meds: YES Currently Unemployed: No Education: Associate Degree Difficulty w/ Childcare or Family Care: No Living arrangements: alone Occupation/Education: retired Gender identity (if verbalized by the patient): Female Sexual Orientation (if Verbalized by the Patient): Straight or Heterosexual Spiritual care concerns: No Exam 2 Narrative: APPEARANCE: Well appearing, no pain, no distress, well-nourished. HEAD: normocephalic, atraumatic. EYES: PERRLA/EOMI, conjunctivae clear. NOSE: Normal no drainage EARS:TMS clear with good light reflex. THROAT: Pharynx clear, no exudate. NECK: Supple. No adenopathy, no masses. RESPIRATORY: Airway patent, respirations nonlabored. Clear to auscultation bilaterally, no rales, rhonchi, wheezing. CARDIOVASCULAR: Regular rate and rhythm without murmurs rubs or gallops. ABDOMINAL: Soft, nontender, nondistended, normal bowel sounds MUSCULOSKELETAL: Moves all extremities. Strength/ROM intact, No edema, No calf tenderness. NEURO: Alert. Cranial nerves II through XII intact. Good gait. Good coordination SKIN: Bleeding from left lateral aspect anterior cervical surgical site. No underlying hematoma, no tenderness to palpation Course Vital Signs Vital signs: Vital Signs Temperature 97.5 F L 07/03/25 07:51 Pulse Rate 94 07/03/25 07:51 Respiratory Rate 14 07/03/25 07:51 Blood Pressure 193/85 H 07/03/25 07:51 Pulse Oximetry 98 07/03/25 07:51 Temperature 97.5 F L 07/03/25 07:51 Pulse Rate 71 07/03/25 11:51 Respiratory Rate 17 07/03/25 11:51 Blood Pressure 214/66 H 07/03/25 11:51 Pulse Oximetry 98 07/03/25 11:51 Procedures Laceration Laceration 1: Time: 11:40 Site: neck Side (If applicable): left Size (cm): 3 Description: linear Amount of anesthesia used (mL): 2 ====== Skin Level ====== Skin layer closed with: nylon Size (cm): 4-0 Number of sutures: 3 ====== Subcutaneous Layer ====== ====== Muscle Layer ====== ====== Tendon Layer ====== Medical Decision Making MDM Narrative Medical decision making narrative: 84-year-old female presents to the emergency department for evaluation for bleeding from a recent surgical site where she had a carotid endarterectomy at [facility]. Patient reports he was having some bleeding from the surgical site after surgery but then she restart her Eliquis and the bleeding worsened. CT scan showed normal postop changes. Patient denies any worsening pain or difficulty breathing or swallowing. Laceration was repaired described the procedure note. Patient was locally anesthetized using lidocaine with epi and this significant help to decrease the bleeding. Patient did have 3 simple interrupted sutures placed and a Surgicel dressing was placed. Patient was started on antibiotics in the emergency department and discharged home with Keflex. Patient was strongly encouraged close follow-up with her physicians and her surgeon. All questions were addressed patient family are comfortable plan with discharge and close follow-up. Bleeding was resolved at time of discharge. Differential Diagnosis Differential Diagnosis: Hematoma, seroma, wound dehiscence, anticoagulation bleeding Vital Signs Vital Signs: Vital Signs Temperature 97.5 F L 07/03/25 07:51 Pulse Rate 94 07/03/25 07:51 Respiratory Rate 14 07/03/25 07:51 Blood Pressure 193/85 H 07/03/25 07:51 Pulse Oximetry 98 07/03/25 07:51 Temperature 97.5 F L 07/03/25 07:51 Pulse Rate 71 07/03/25 11:51 Respiratory Rate 17 07/03/25 11:51 Blood Pressure 214/66 H 07/03/25 11:51 Pulse Oximetry 98 07/03/25 11:51 Lab Data Lab results reviewed: Yes I reviewed the patient's lab results. 07/03/25 08:08 07/03/25 08:34 Labs: Lab Results 07/03/25 07/03/25 Range/Units 08:08 08:34 WBC 16.4 H (4.5-10.0) K/mm3 RBC 3.66 L (4.2-5.4) M/mm3 Hgb 11.0 L (12.0-15.0) g/dL Hct 33.7 L (37.0-47.0) % MCV 92.1 (80-100) fl MCH 30.1 (26-34) pg MCHC 32.6 (32-36) g/dl RDW 15.0 H (11.5-14.5) % Plt Count 315 (150-375) k/mm3 MPV 9.7 (7.4-10.4) fl Immature Gran % (Auto) 1.0 H (0-0.5) % Neut % (Auto) 72.6 (45.5-73.1) % Lymph % (Auto) 15.9 L (18.3-44.2) % [place] % (Auto) 9.8 H (2.6-8.5) % Eos % (Auto) 0.5 (0-4.4) % Baso % (Auto) 0.2 (0.2-1.2) % Lymph # (Auto) 2.62 (0.9-3.2) K/mm3 [place] # (Auto) 1.6 H (0.1-0.6) K/mm3 Eos # (Auto) 0.1 (0-0.3) K/mm3 Baso # (Auto) 0.0 (0.0-0.1) K/mm3 Abs Immat Gran (auto) 0.16 H (0.00-0.031) K/mm3 Absolute Neuts (auto) 11.9 H (1.3-6.7) K/mm3 Absolute Nucleated RBC 0.000 (0.0-0.012) K/mm3 Nucleated RBC % 0.0 (0.0-0.2) % PT 16.1 H (11.1-14.7) Seconds INR 1.3 APTT 32.4 (22.3-36.8) Seconds Sodium 139 (137-145) mmol/L Potassium 4.0 (3.4-5.0) mmol/L Chloride 103 (98-107) mmol/L Carbon Dioxide 29 (22-30) mmol/L Anion Gap 7 (4-12) mmol/L BUN 31 H (7-17) mg/dL Creatinine 1.05 H 1.20 (0.7-1.0) mg/dL Estim Creat Clear Calc 31 27 ml/min Estimated GFR 50 L 43 L (59 - ) Glucose 88 (65-110) mg/dL Calcium 9.5 (8.4-10.2) mg/dL Total Bilirubin 0.4 (0.2-1.3) mg/dL AST 55 H (14-36) U/L ALT 29 (6-35) U/L Alkaline Phosphatase 111 (38-126) U/L Total Protein 7.1 (6.3-8.2) g/dL Albumin 4.0 (3.5-5.1) g/dL Imaging Data Radiologist's impression: Impressions Soft Tissue Neck CT 07/03/25 08:44 IMPRESSION: 1. Postsurgical change from left carotid endarterectomy. 2. 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 Discharge Plan Discharge Clinical Impression: Post-op bleeding, Laceration Patient Disposition: Home Condition: Stable Instructions: Antibiotic Form, Laceration (ED) Additional Instructions: Your sutures will need to be removed in 7 days. Antibiotic as directed until completed. Hold your Eliquis until tomorrow. Have close follow-up with your surgeon and with your primary care physician. If you have any worsening symptoms then please call or return to the emergency department. Patient Language: Chinese Prescriptions: New cephalexin 500 mg capsule 500 mg PO Q12H 7 Days Qty: 14 0RF No Action atorvastatin 10 mg Tablet 10 mg PO HS verapamil 180 mg Tablet Extended Release 180 mg PO BID losartan 25 mg Tablet 25 mg PO DAILY montelukast [Singulair] 10 mg Tablet 10 mg PO HS tramadol 50 mg tablet 50 mg PO Q6-8H hydrochlorothiazide 12.5 mg capsule 12.5 mg PO DAILY Rx Instructions: takes in the morning fluticasone furoate-vilanterol [Breo Ellipta] 200-25 mcg/dose blister with device 1 inh INHALATION DAILY Eliquis 2.5 mg Tablet 2.5 mg PO Q12HR Qty: 60 0RF aspirin 81 mg tablet,delayed release (DR/EC) 81 mg PO DAILY Qty: 30 0RF Follow-up/Referrals: PHYSICIAN NOT ON STAFF,NONSTAFF [Primary Care Provider]
--- OUTSIDE RECORDS SUMMARY | 2025-07-03 07:57 | XMS_ITS | Clinical Summary ---
Author Organization [facility] [employer] Address [address] [place] [address] Care Team Providers Care Retail Zone Specialist Name Role Phone Yissel Hampton DO Primary Care Provider [phone] Yissel Hampton DO Unavailable Source Comments [facility] [employer],non-owned Affiliates and Associated Physician Practices is amultiple site organization consisting of ambulatory clinics and hospital sitesin [place], [place], [place] and [place]. This disclosure is being madepursuant to the Care Everywhere program and may not contain all information available regarding this patient. Last updated 18.[facility] [employer] Allergies No known active allergies Medications * Be aware that medications may not be up to date on this document. Alwaysverify current medications with the patient. traMADol (ULTRAM) 50 MG tablet Take 1 (one) tablet by mouth every 6 hours as needed for Pain Active ATORVASTATIN CALCIUM PO Take 1 tablet by mouth at bedtime Active montelukast (SINGULAIR) 10 MG tablet Take 1 (one) tablet by mouth at bedtime Active DHEA 25 MG Take by mouth once daily Active Multiple Vitamins-Melangeur Operator als (MACULAR VITAMIN BENEFIT PO) Take 2 tablets by mouth 2 times daily Active B Complex Vitamins (B COMPLEX 50) TABS Take by mouth once daily Active Bioflavonoid Products (VITAMIN C PLUS PO) Take 1 tablet by mouth once daily Active acetaminophen (TYLENOL) 500 MG tablet Take 1 (one) tablet by mouth every 4 hours as needed for Fever or Pain Maximum allowable Acetaminophen amount = 4 Grams (4000 mg) / 24 hours. 30 tablet 12/15/19 22 Active aspirin (Aspirin) 81 MG chew tablet Take 1 (one) tablet by mouth once daily Active cloNIDine (Catapres) 0.1 MG tablet Take 1 (one) tablet by mouth 2 times daily Active [place]-3 Fatty Acids (OMEGA 3 500 PO) Active zinc sulfate (Zincate) 220 (50 ZN) MG capsule Take 1 (one) capsule by mouth once daily Active furosemide (Lasix) 20 MG tablet Take 1 (one) tablet by mouth once daily Active Apixaban (ELIQUIS PO) Active fluticasone-um eclidinium-izzy anterol (Trelegy Ellipta) 100-62.5-25 MCG/ACT inhaler Inhale 1 (one) puff by mouth once daily Active metoprolol succinate XL 24hr (Toprol XL) 50 MG tablet Take 1 (one) tablet by mouth once daily Active acetaminophen- codeine (Tylenol #3) 300-30 MG tablet Take 1 (one) tablet by mouth every 4 hours as needed 05/25/20 25 Active albuterol HFA (Proventil; Ventolin; Proair) 108 (90 Base) MCG/ACT inhaler Inhale 2 (two) puffs by mouth every 6 hours as needed Active cycloSPORINE (Vevye) 0.1 % SOLN Instill 1 drop into both eyes 2 times daily 02/25/20 25 Active potassium chloride ER (Klor-Con M) 20 MEQ tablet Take 1 (one) tablet by mouth once daily 08/07/20 24 025 Active CALCIUM-MAGNES IUM-VITAMIN D PO Take 1 tablet by mouth once daily Active HYDROcodone-ac etaminophen ([place]) 5-325 MG tabletIndicati ons:Paralysis of left vocal fold Take 1 (one) tablet by mouth every 6 hours as needed for Pain 12 tablet 07/01/20 25 Active methylPREDNISo lone (Medrol Dosepak) 4 MG tablet Take by mouth as directed <!--EPICS-->Follo w package insert dosing for six day supply.<!--EPICE- -> 21 tablet 07/01/20 25 Active verapamil CR (ISOPTIN-SR) 180 MG tablet Take 1 (one) tablet by mouth daily with breakfast 025 Discontin ued(List Clean-Up) warfarin (COUMADIN) 2.5 MG tablet Take 1 (one) tablet by mouth at bedtime 025 Discontin ued(List Clean-Up) Cholecalcifero l (VITAMIN D) 125 MCG (5000 UT) CAPS Take by mouth once daily 025 Discontin ued(List Clean-Up) fluticasone-vi lanterol (Breo Ellipta) 100-25 MCG/ACT inhaler Inhale 1 (one) puff by mouth once daily Administer at the same time each day. 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 Encounters Date Type Department Care Team Description 07/01/2025 9:50 AM CDT Anesthesia Event [facility] [address] [place] [address] Aquiles Perez MD 07/01/2025 9:05 AM CDT - 07/01/2025 10:30 AM CDT Surgery [facility] [address] [place] [address] Ciro Massey MD THYROPLASTY 07/01/2025 7:43 AM CDT - 07/01/2025 12:00 PM CDT Hospital Encounter [facility] [address] [place] [address] Ciro Massey MD Surgery General Discharge Disposition: Home or Self Care 07/01/2025 Travel 06/24/2025 Travel 06/01/2025 Travel from Last 3 Months Family History Medical History Relation Name Comments Cancer - Breast Neg Hx Social History Tobacco Use Types Packs/Day Years Used Date Smoking Tobacco: Former Smokeless Tobacco: Never Alcohol Use Standard Drinks/Week Comments Yes 0 (1 standard drink = 0.6 oz pur e alcohol) AUDIT-C Answer Date Recorded Q1: How often do you have a drink containing alcohol? 4 or more times a week 12/14/2021 Q2: How many drinks containi ng alcohol do you have on a typical day when you are drinking? 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 Gender Identity Not on file Sexual Orientation Not on file Last Filed Vital Signs Vital Sign Reading Time Taken Comments Blood Pressure 151/60 07/01/2025 11:30 AM CDT Pulse 71 07/01/2025 11:30 AM CDT Temperature 36.7 C (98.1 F) 07/01/2025 10:52 AM CDT Respiratory Rate 18 07/01/2025 11:00 AM CDT Oxygen Saturation 99% 07/01/2025 11:30 AM CDT Inhaled Oxygen Concentration - - Weight 60.8 kg (134 lb) 07/01/2025 8:17 AM CDT Height 162.6 cm (5' 4) 07/01/2025 8:17 AM CDT Body Mass Index 23 07/01/2025 8:17 AM CDT Plan of Treatment Health Maintenance Due Date Last Done Comments MEDICARE AWV 12 MONTHS 1940 DTAP/TDAP/TD VACCINES (1 - Tdap) 1959 PNEUMOCOCCAL VACCINE 50+ (1 of 1 - PCV) 1990 ZOSTER VACCINE (1 of 2) 1990 Respiratory Syncytial Virus (RSV) Vaccine Pt: or over 60 yrs (1 - 1-dose 75+ series) 2015 DEPRESSION SCREENING 10/14/2024 COVID-19 VACCINE (4 - 2024-2 6 season) 2025 08/04/2021, 12/14/2020, 11/23/2020 INFLUENZA VACCINE (#1) 2025 BONE DENSITY TESTING Completed 04/12/2016 HEPATITIS B VACCINE Aged Out No longe r eligible based on patient's age to complete this topic HIB VACCINE Aged Out No longer eligi ble based on patient's age to complete this topic HPV VACCINE Aged Out No longer eligi ble based on patient's age to complete this topic MENINGOCOCCAL (Group B) VACCINE SHARED DECISION-MAKING Aged Out No longer eligible based on patient's age to complete this topic MENINGOCOCCAL GROUPS A/C/Y/W VACCINE Aged Out No longer eligible b ased on patient's age to complete this topic Medical Devices Implanted Type Area Auto Body Shop Manager Device Identifier Shelf Expiration Date Model / Serial / Lot Patch Cv Thk.6mm 15x2.5cm Vivien [facility] - [id number] Implanted:Qty : 1 on 07/01/2025 by Ciro Massey MD at [facility] Left: Throat [employer] 05/16/2030 [id number] / [id number] / Procedures Procedure Name Priority Date/Time Associated Diagnosis Comments TN LARYNGOPLASTY MEDIALIZATION UNI 07/01/2025 9:42 AM CDT Special Needs GLIDESCOPE DISPOSABLE BROCH- SLIM SIZE/GORTEX CARDIOVASCULAR PATCH DEXA BONE DENSITY 2 SITES Routine 04/12/2016 10:06 AM CDT Asymptomatic age-related postmenopausal state from Last 3 Months or Most Recently Relevant to Health Maintenance Results * DEXA BONE DENSITY 2 SITES (04/12/2016 10:06 AM CDT) Anatomical Region Laterality Modality Mammography 04/12/2016 10:1 0 AM CDT Narrative 04/12/2016 10:18 AM CDT BONE MINERAL DENSITY STUDY INDICATION: Ovarian Failure. FINDINGS: The average bone mineral density from L1 to L4 is 0.958 g/cm2. T-score is -1.8. Z-score is 0.0. The average bone mineral density of the total bilateral hip is 0.631 g/cm2. T-score is -1.4. Z-score is 0.4. ASSESSMENT: Osteopenia. WORLD HEALTH ORGANIZATION DEFINITIONS OSTEOPENIA = -1 TO -2.5 SD BELOW T-SCORE OSTEOPOROSIS = LESS THAN -2.5 SD BELOW T-SCORE Edited by Leilani Ricardo on 04/12/2016 10:11 AM Procedure Note Rob Wallace MD - 04/12/2016 BONE MINERAL DENSITY STUDY INDICATION: Ovarian Failure. FINDINGS: The average bone mineral density from L1 to L4 is 0.958 g/cm2. T-score is -1.8. Z-score is 0.0. The average bone mineral density of the total bilateral hip is 0.631 g/cm2. T-score is -1.4. Z-score is 0.4. ASSESSMENT: Osteopenia. WORLD HEALTH ORGANIZATION DEFINITIONS OSTEOPENIA = -1 TO -2.5 SD BELOW T-SCORE OSTEOPOROSIS = LESS THAN -2.5 SD BELOW T-SCORE Edited by Leilani Ricardo on 04/12/2016 10:11 AM Yissel Hampton DO DEXA ORDERABLES Final Result from Last 3 Months or Most Recently Relevant to Health Maintenance Insurance MEDICARE [facility] MEDICARE SUPPLEMENT PAYOR GENERIC MEDICARE MEDICARE SUPPLEMENT PAYOR GENERIC Care Teams Retail Zone Specialist Relationship Specialty Start Date End Date Yissel Hampton DO [address] [place] [address] PCP - General 12/03/08 Yissel Hampton DO [address] [place] [address] 12/03/08
--- OUTSIDE RECORDS SUMMARY | 2025-07-03 07:57 | XMS_ITS | Encounter Summary ---
Author Organization [facility] Address [address] [place] [address] Care Team Providers Care Drop Wire Aligner Name Role Phone Berta, Yissel A Primary Care Provider [phone] Berta Yissel Guzman DO Unavailable [phone] Encounter Details Date Type Department Care Team (Late st Contact Info) Description 05/01/2023 Lab Requisition [facility] - [facility] Lab 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 Gender Identity Not on file Sexual Orientation Not on file documented as of this encounter Plan of Treatment Not on file documented as of this encounter Procedures Procedure Name Priority Date/Time Associated Diagnosis Comments DERMATOPATHOLOGY Routine 04/30/2023 12:0 0 AM CDT documented in this encounter Results * DERMATOPATHOLOGY (04/30/2023 12:00 AM CDT) Case Report Dermatopathology Report Case: [id number] Authorizing Provider: Adriel Fernandez Jr., MD Collected: 04/30/2023 12:00 AM Ordering Location: [facility] Received: 05/01/2023 08:19 AM Pathologist: Amelia Marin MD Specimen: Skin, right inferior lateral forehead 2:31 PM CDT DERMATOPATHOLOGY LABORATORY Final Diagnosis Specimen A. 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 The specimen consists of a shave biopsy measuring 7x5x1 mm. Jar 0. 2:31 PM CDT DERMATOPATHOLOGY LABORATORY Microscopic Description Specimen A. SKIN, right inferior lateral forehead: The epidermis shows parakeratosis, full thickness disorderly maturation of keratinocytes, mitoses at different levels, and dyskeratotic cells. The lesion extends to the base of the biopsy. There is a column of marked compact hyperkeratosis. COMMENT: An invasive squamous cell carcinoma cannot be ruled out. 2:31 PM CDT DERMATOPATHOLOGY LABORATORY Disclaimer An external and internal positive and negative controls are appropriate for the histochemical, immunohistochemical and immunofluorescence stain(s) in this case (if any), except where stated explicitly. The performance characteristics of the stain(s) cited in this report were developed and its performance characteristic determined by the Dermatopathology Laboratory at [facility], directed by Dr. Karson Marin. These tests need not be, and therefore are not, approved by the [place] Food and Drug Administration. The tests are used for clinical purposes. Billing Codes Specimen Charges Stain Charges 32474 1 07/20/202 3 2:31 PM CDT DERMATOPATHOLOGY LABORATORY Embedded Images 3 2:31 PM CDT DERMATOPATHOLOGY LABORATORY Pathology/Cytolog y TISSUE SPECIMEN FROM SKIN / Unknown 04/30/2023 05/01/2023 8:19 AM CDT Adriel Fernandez Jr., MD LAB - PATHOLOGY/CYTOLOG Y ORDERABLES Final Result DERMATOPATHOLOGY LABORATORY [facility] - Department of Dermatology [facility] Medicine [address] [place] [address], [address] [phone] documented in this encounter Visit Diagnoses Not on filedocumented in this encounter Care Teams Drop Wire Aligner Relationship Specialty Start Date End Date Yissel Hampton DO [address] [place] [address] PCP - General 12/03/08 Yissel Hampton DO [address] [place] [address] 12/03/08 documented as of this encounter
--- OUTSIDE RECORDS SUMMARY | 2025-07-03 07:57 | XMS_ITS | Encounter Summary ---
Author Organization [facility] Address [address] [facility] [place] [address] Care Team Providers Care Pole Framer Name Role Phone Berta, Yissel A Primary Care Provider [phone] Betra Yissel Guzman DO Unavailable [phone] Encounter Details Date Type Department Care Team (Late st Contact Info) Description 10/27/2020 Lab Requisition [facility] DermPath Lab [address] [facility] [place] [address] Adriel Fernandez Jr., MD [address] [facility] [address] [place] [address] Social History Tobacco Use Types Packs/Day Years Used Date Smoking Tobacco: Never Assessed Comments No Sex and Gender Information Value Date Recorded Sex Assigned at Not on file Legal Sex Female 5:28 AM HOMICIDE DETECTIVE Gender Identity Not on file Sexual Orientation Not on file documented as of this encounter Plan of Treatment Not on file documented as of this encounter Procedures Procedure Name Priority Date/Time Associated Diagnosis Comments DERMATOPATHOLOGY Routine 10/26/2020 12:0 0 AM HOMICIDE DETECTIVE documented in this encounter Results * DERMATOPATHOLOGY (10/26/2020 12:00 AM HOMICIDE DETECTIVE) Case Report Dermatopathology Report Case: [id number] Authorizing Provider: Adriel Fernandez Jr., MD Collected: 10/26/2020 12:00 AM Ordering Location: [facility] DermPath Lab Received: 10/27/2020 09:02 AM Pathologist: Summer Mckeon MD Specimen: Skin, right inferior central forehead 1:18 PM [facility] DERMATOPATHOLOGY LABORATORY Final Diagnosis Specimen A. 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 . 1 1:18 PM [facility] DERMATOPATHOLOGY LABORATORY Gross Description Specimen A: Received is one formalin filled container labeled with the patient's name and designated right inferior central forehead. The specimen consists of a shave biopsy measuring 5x0q1jj. Jar 0. 1 1:18 PM [facility] DERMATOPATHOLOGY LABORATORY Microscopic Description Specimen A. SKIN, right inferior central forehead: The epidermis shows parakeratosis, full thickness disorderly maturation of keratinocytes, mitoses at different levels, and dyskeratotic cells. 1 1:18 PM [facility] DERMATOPATHOLOGY LABORATORY Disclaimer An external and internal positive and negative controls are appropriate for the histochemical, immunohistochemical and immunofluorescence stain(s) in this case (if any), except where stated explicitly. The performance characteristics of the stain(s) cited in this report were developed and its performance characteristic determined by the Dermatopathology Laboratory at [facility], directed by Dr. Karson Marin. These tests need not be, and therefore are not, approved by the [place] Food and Drug Administration. The tests are used for clinical purposes. Billing Codes Specimen Charges Stain Charges 55190 1 1 1:18 PM [facility] DERMATOPATHOLOGY LABORATORY Embedded Images 1 1:18 PM [facility] DERMATOPATHOLOGY LABORATORY Pathology/Cytolog y TISSUE SPECIMEN FROM SKIN / Unknown 10/26/2020 10/27/2020 9:02 AM [facility] us Adriel Fernandez Jr., MD LAB - PATHOLOGY/CYTOLOG Y ORDERABLES Final Result DERMATOPATHOLOGY LABORATORY [facility] - Department of Dermatology [address], [address] [phone] documented in this encounter Visit Diagnoses Not on filedocumented in this encounter Care Teams Pole Framer Relationship Specialty Start Date End Date Yissel Hampton DO [address] [facility] [address] [place] [address] PCP - General 12/03/08 Yissel Hampton DO [address] [facility] [address] [place] [address] 12/03/08 documented as of this encounter
--- OUTSIDE RECORDS SUMMARY | 2025-07-03 07:57 | XMS_ITS | Encounter Summary ---
Author Organization [facility] Address 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 Megan White'S EXCHANGE Encounter Details Date Type Department Care Team (Late st Contact Info) Description 01/05/2024 Telephone [facility] Emergency [address], [place] [id number] [place] [address] [address] high grade 85% left proximal ICA stenosis w/stroke (SPOKE Sawyer WHYTE AT DR. Megan SMYTH'Karlos EXCHANGE) Social History Tobacco Use Types Packs/Day Years Used Date Smoking Tobacco: Former Smokeless Tobacco: Never Alcohol Use Standard Drinks/Week Comments Yes 2 (1 standard drink = 0.6 oz pur e alcohol) Feeling Safe Answer Date Recorded Are you in a relationship wi th someone who hurts you emotionally and/or physically? No 01/04/2024 Food Insecurity Answer Date Recorded Social/Environmental Concerns No concerns;Israel suarez declined 01/04/2024 Transportation Needs Answer Date Record ed Social/Environmental Concerns No concerns;Israel suarez declined 01/04/2024 Housing Stability Answer Date Recorded Social/Environmental Concerns No concerns;Israel suarez declined 01/04/2024 Utility Needs Answer Date Recorded Social/Environmental Concerns No concerns;Patien t declined 01/04/2024 Comments No Sex and Gender Information Value Date Recorded Sex Assigned at Not on file Legal Sex Female 2:00 PM STATION BAGGAGE AGENT Gender Identity Not on file Sexual Orientation Not on file documented as of this encounter Plan of Treatment Not on file documented as of this encounter Visit Diagnoses Not on filedocumented in this encounter Care Teams Disk Recordist Relationship Specialty Start Date End Date Yissel Hamptno DO [address] [place] [address] PCP - General Family Practice 10/31/17 documented as of this encounter
--- OUTSIDE RECORDS SUMMARY | 2025-07-03 07:57 | XMS_ITS ---
Author Organization [facility] Address [address] [place] [address] Care Team Providers Care Template Inspector Name Role Phone Yissel Hampton DO Primary Care Provider [phone] Varun Uribe MD Unavailable Chilo Do MD Unavailable [phone] Cesar Mcdonough MD Unavailable Jalen Strickland MD Unavailable Rimma Adames MD Unavailable Active Problems Problem Noted Date Diagnosed Date Allergic conjunctivitis 05/20/2025 Bilateral posterior capsular opacification 05/20 Blepharitis 05/20/2025 Cerebral infarction 05/20/2025 Drusen of macula of both eyes 05/20/2025 Epiretinal membrane (ERM) of both eyes Keratoconjunctivitis sicca 05/20/2025 Refractive amblyopia of right eye 05/20/2025 Vocal cord paralysis 06/28/2024 Pleural effusion 06/26/2024 CAP (community acquired pneumonia) 06/25/2024 Aspiration pneumonia of left lower lobe 06/25/[address] scan 06/25/2024 Iron deficiency anemia 06/19/2024 Moderate malnutrition 05/05/2024 GI (gastrointestinal bleed) 05/01/2024 Hospital-acquired pneumonia 04/08/2024 Neutrophilic leukocytosis 04/08/2024 LAD (lymphadenopathy), mediastinal 04/08/2024 Age-related physical debility 04/08/2024 Atrial fib/flutter, transient 03/17/2024 Assessment & Plan (03/17/2024 3:44 PM CDT): Restart keikoquis Constipation 03/17/2024 Assessment & Plan (03/17/2024 3:44 PM CDT): Start senna docusate History of CEA (carotid endarterectomy) 03/16/20 Assessment & Plan (03/17/2024 3:41 PM CDT): Cont asa, statin Secondary hypertension 03/16/2024 Dysarthria 03/10/2024 Assessment & Plan (03/17/2024 3:41 PM CDT): resolved Symptomatic anemia 03/06/2024 Assessment & Plan (03/17/2024 3:40 PM CDT): Checked iron studs Lab Results Component Value Date FERRITIN 55 03/17/2024 Tsat 5 Will give venofer Acute blood loss anemia 03/06/2024 Assessment & Plan (03/17/2024 3:40 PM CDT): Stable now If rebleeds would rediscuss with gi Acute worsening of stage 3 chronic kidney diseas e 03/06/2024 Assessment & Plan (03/17/2024 3:40 PM CDT): Resolved Lab Results Component Value Date GLUCOSE 142 03/17/2024 CALCIUM 8.7 03/17/2024 SODIUM 141 03/17/2024 POTASSIUM 3.9 03/17/2024 CO2 23 03/17/2024 CHLORIDE 104 03/17/2024 BUNSER 12 03/17/2024 CREATININE 0.88 03/17/2024 Internal carotid artery stenosis, bilateral 2 01/2024 Hx of transient ischemic attack (TIA) 03/06/2024 Assessment & Plan (03/17/2024 3:41 PM CDT): L cea done 03/16 Cont asa, statin TIA (transient ischemic attack) 01/22/2024 Aphasia 01/05/2024 Slurred speech 01/04/2024 Stroke-like episode 01/04/2024 Carotid disease, bilateral 07/26/2022 Assessment & Plan (07/08/2024 12:18 PM CDT): Minimal progressive of asymptoamtic right ICA stenosis based on velocity criteria. Repeat carotid doppler in three months. Assessment & Plan (01/22/2024 12:45 PM CDT): Severe left ICA stenosis on CTA with calcification. Plan carotid doppler in our office. She will make an updated appointment with her dentist to be sure there's no dental infection and we will likely plan a left carotid endarterectomy pending carotid doppler results if there is no sign of tooth infection per f/u with dentist. She would need to hold Coumadin for carotid endarterectomy. If planned, we'll check-in with Dr. Uribe's office to be sure it's charlie to hold her anticoagulation. She will remain on ASA for surgery. Assessment & Plan (07/26/2022 1:08 PM CDT): Unstable Referral to Dr. Do Benign essential HTN 07/26/2022 Assessment & Plan (03/17/2024 3:41 PM CDT): Cont hctz, clonidine, verapamil Off icu gtt's today Dyspnea on exertion 07/26/2022 Paroxysmal atrial fibrillation 07/26/2022 Assessment & Plan (07/26/2022 1:07 PM CDT): Stable Continue Eliquis Essential hypertension 11/19/2019 Assessment & Plan (07/26/2022 1:07 PM CDT): Stable Continue hydrochlorothiazide losartan verapamil Assessment & Plan (06/19/2022 2:52 PM CDT): Uncontrolled had losartan 25 mg per day, hydrochlorothiazide 12.5 mg per day Assessment & Plan (06/11/2021 9:48 AM CDT): Stable Continue verapamil Assessment & Plan (06/06/2020 8:06 AM CDT): Continue medical care and treatment SSS (sick sinus syndrome) 06/29/2019 Overview (06/29/2019): Added automatically from request for surgery [id number] Assessment & Plan (06/11/2021 9:48 AM CDT): Continue clinical observation Complications, mechanical, pacemaker, cardiac Overview (06/29/2019): Added automatically from request for surgery [id number] Atrial flutter 10/22/2017 Assessment & Plan (06/19/2022 2:52 PM CDT): Pacemaker assessment reveals recurrent episodes of atrial flutter fibrillation for which she is on Coumadin therapy Assessment & Plan (06/11/2021 9:49 AM CDT): Stable EKG Continue Coumadin Assessment & Plan (06/06/2020 8:06 AM CDT): EKG Continue anticoagulation Assessment & Plan (11/23/2018 3:43 PM [employer]EM[employer] SHIP[employer] DEPARTMENT): Continue anticoagulation Assessment & Plan (04/21/2018 4:54 PM CDT): Continue anticoagulation Mixed hyperlipidemia 10/20/2017 Assessment & Plan (07/26/2022 1:07 PM CDT): Stable Continue Lipitor Assessment & Plan (06/11/2021 9:48 AM CDT): Stable Continue Lipitor Assessment & Plan (06/06/2020 8:06 AM CDT): Continue medical care and treatment Assessment & Plan (11/18/2019 1:44 PM [employer]): Continue medical care and treatment Assessment & Plan (05/21/2019 11:27 AM CDT): Continue medical care and treatment Assessment & Plan (11/27/2018 10:41 AM [employer]PARTMENT): Continue medical care and treatment Assessment & Plan (04/21/2018 4:53 PM CDT): Continue medical care and treatment 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 Nuclear stress , 03/2017, nl LVEF, normal myocardial perfusion Assessment & Plan (07/26/2022 1:07 PM CDT): Stable Continue aspirin, Lipitor, sublingual nitro Assessment & Plan (06/11/2021 9:49 AM CDT): Stable Continue verapamil, Lipitor Assessment & Plan (06/06/2020 8:06 AM CDT): Continue medical care and treatment Assessment & Plan (11/19/2019 11:09 AM [employer]PARTMENT): New medical care and treatment Assessment & Plan (11/23/2018 3:43 PM [employer]): Continue medical care and treatment Assessment & Plan (04/21/2018 4:53 PM CDT): Continue medical care and treatment Assessment & Plan (10/20/2017 5:14 PM [employer]): Medical care and treatment Chest pain 04/08/2017 Assessment & Plan (04/08/2017 2:38 PM CDT): Her EKG today shows sinus rhythm with no acute ST or T-wave abnormalities. Her chest pain sounds atypical, it is prolonged- constant for the past several days. She did take nitro on 2 different occasions without any relief. She states her nitroglycerin is a new prescription and not old. She has not had a stress test since her cardiac catheterization in 2009. I will go ahead and order a Lexiscan (she cannot walk on a treadmill due to back pain), to assess for ischemia. If normal, she needs to follow up with her primary care physician. Colon cancer 08/15/2015 Colon tumor 08/15/2015 Colitis 08/14/2015 Left lower quadrant pain 08/14/2015 Sinoatrial node dysfunction 08/27/2014 Overview (05/21/2019): Sinus node dysfunction, status post pacemaker Assessment & Plan (11/18/2019 1:44 PM [employer]): Continue transtelephonic monitoring of pacemaker Assessment & Plan (11/23/2018 3:44 PM [employer]): Continue observational care Assessment & Plan (10/20/2017 5:17 PM [employer]): pacer Basal cell carcinoma (BCC) of chest wall 014 Actinic keratosis 01/13/2014 S/P placement of cardiac pacemaker 04/04/2009 Overview (07/06/2019): Med[employer]onic DDD [place] MRI pacemaker implanted on 07/03/19 for SSS. Demar - [employer] Chronic RA/RV leads are from 06/14/04 Assessment & Plan (07/26/2022 1:06 PM CDT): Continue transtelephonic monitoring Assessment & Plan (06/11/2021 9:48 AM CDT): Stable Continue transtelephonic monitoring Assessment & Plan (06/06/2020 8:07 AM CDT): Continue transtelephonic monitoring Assessment & Plan (11/18/2019 1:44 PM [employer]): Continue transtelephonic monitoring Assessment & Plan (05/21/2019 11:26 AM CDT): Continue transtelephonic monitoring Assessment & Plan (11/27/2018 10:42 AM [employer] DEPARTMENT): Continue transtelephonic monitoring Assessment & Plan (10/20/2017 5:18 PM [employer] DEPARTMENT): Transtelephonic monitoring Assessment & Plan (04/08/2017 2:33 PM CDT): She had a transmission done today early this morning. It revealed appropriate functioning of her pacemaker. She did have an episode of atrial flutter with heart rate 109 on February 25, lasting 2 minutes. I will discuss with Dr. Velasquez. She is on full-dose aspirin, I told her to continue that for now. Current Treatment and Therapy Plans No current plan information found. Other Current Plans Adult BMT/ONC - Blood and/or Platelet Administration for Outpatient* Plan Start Date:06/23/2024 Plan Provider:Cesar Mcdonough MD Linked Problems Acute blood loss anemia Treatment Medications No medications scheduled. Ferumoxytol (FERAHEME) Infusion* Plan Start Date:06/23/2024 Plan Provider:Cesar Mcdonough MD Linked Problems Iron deficiency anemia, unsp ecified iron deficiency anemia type Treatment Medications No medications scheduled. Past Treatment and Therapy Plans No past plan information found. Lifetime Dose Tracking * Chemical Lifetime Dose Automatic Entry Manual Entr y Fluoro Time 1.5 minutes 1.3 minutes 0.2 minutes Air kerma at the reference point (Ka,r) 16.67 mGy 4 .9 mGy 11.77 mGy DLP 163 mGycm 163 mGycm 0 mGycm DAP 139.7 Gy-cm2 0 Gy-cm2 139.7 Gy-cm2 Resolved Problems Problem Noted Date Diagnosed Date Resolved Date Warfarin-induced coagulopathy 03/06/2024 04/08/2024 Assessment & Plan (03/17/2024 3:42 PM CDT): resolved Supratherapeutic INR 01/22/2024 024 Assessment & Plan (01/22/2024 11:16 AM CDT): INR was 3.3 at time of ER visit and 1.4 on 01/07/24.
--- OUTSIDE RECORDS SUMMARY | 2025-07-03 07:57 | XMS_ITS | Encounter Summary ---
Author Organization [facility] Address [address] [place] [place] [address] Care Team Providers Care Drama Critic Name Role Phone Berta, Yissel A Primary Care Provider [phone] Berta Yissel Guzman DO Unavailable [phone] Encounter Details Date Type Department Care Team (Late st Contact Info) Description 10/30/2022 Lab Requisition [facility] Care DermPath Lab [address] [facility] [place] [address] Adriel Fernandez Jr., MD [address] [facility] [address] [place] [address] Social History Tobacco Use Types Packs/Day Years [...] on file Legal Sex Female 5:28 AM WHISKEY FILTERER Gender Identity Not on file Sexual Orientation Not on file documented as of this encounter Plan of Treatment Not on file documented as of this encounter Procedures Procedure Name Priority Date/Time Associated Diagnosis Comments DERMATOPATHOLOGY Routine 10/30/2022 12:0 0 AM WHISKEY FILTERER documented in this encounter Results * DERMATOPATHOLOGY (10/30/2022 12:00 AM [facility]) Case Report Dermatopathology Report Case: [id number] Authorizing Provider: Adriel Fernandez Jr., MD Collected: 10/30/2022 12:00 AM Ordering Location: [facility] DermPath Lab Received: 10/30/2022 04:33 PM Pathologist: Amelia Marin MD Specimen: Skin, left inferior lateral forehead 3:40 PM [facility] DERMATOPATHOLOGY LABORATORY Final Diagnosis Specimen A. SKIN, left inferior lateral forehead: SQUAMOUS CELL CARCINOMA IN SITU, PRESENT AT THE BASE OF THE SPECIMEN (D04.39) (see microscopic description and comment) 3:40 PM [facility] DERMATOPATHOLOGY LABORATORY at 1540 WHISKEY FILTERER Clinical History BCC 3:40 PM [facility] DERMATOPATHOLOGY LABORATORY Gross Description Specimen A: Received is one formalin filled container labeled with the patient's name and designated left inferior lateral forehead. The specimen consists of a shave biopsy measuring 5x4x1 mm. Jar 0. 3:40 PM [facility] DERMATOPATHOLOGY LABORATORY Microscopic Description Specimen A. SKIN, left inferior lateral forehead: The epidermis shows parakeratosis, full thickness disorderly maturation of keratinocytes, mitoses at different levels, and dyskeratotic cells. The lesion extends to the base of the biopsy. COMMENT: An invasive squamous cell carcinoma cannot be ruled out. 3:40 PM [facility] DERMATOPATHOLOGY LABORATORY Disclaimer An external and internal positive and negative controls are appropriate for the histochemical, immunohistochemical and immunofluorescence stain(s) in this case (if any), except where stated explicitly. The performance characteristics of the stain(s) cited in this report were developed and its performance characteristic determined by the Dermatopathology Laboratory at [facility], directed by Dr. Karson Marin. These tests need not be, and therefore are not, approved by the [place] Food and Drug Administration. The tests are used for clinical purposes. Billing Codes Specimen Charges Stain Charges 45899 1 3 3:40 PM [facility] DERMATOPATHOLOGY LABORATORY Embedded Images 3:40 PM WHISKEY FILTERER DERMATOPATHOLOGY LABORATORY Pathology/Cytolog y TISSUE SPECIMEN FROM SKIN / Unknown 10/30/2022 10/30/2022 4:33 PM WHISKEY FILTERER Adriel Fernandez Jr., MD LAB - PATHOLOGY/CYTOLOG Y ORDERABLES Final Result DERMATOPATHOLOGY LABORATORY [facility] - Department of Dermatology [facility] [address] [place] [address], [address] [phone] documented in this encounter Visit Diagnoses Not on filedocumented in this encounter Care Teams Drama Critic Relationship Specialty Start Date End Date Yissel Hampton DO [address] [facility] [address] [place] [address] PCP - General 12/03/08 Yissel Hampton DO [address] [facility] [address] [place] [address] 12/03/08 documented as of this encounter
--- OUTSIDE RECORDS SUMMARY | 2025-07-03 07:57 | XMS_ITS | Encounter Summary ---
Author Organization [facility] Address [address] [address] Care Team Providers Care Stable Hand Name Role Phone Yissel Hampton DO Primary Care Provider [phone] Yissel Hampton DO Primary Care Provider [phone] Varun Uribe MD Unavailable [phone] Chilo Do MD Unavailable [phone] Cesar Mcdonough MD Unavailable [phone] Jalen Strickland MD Unavailable [phone] Rimma Adames MD Unavailable [phone] Encounter Details Date Type Department Care Team (Late st Contact Info) Description 01/10/2017 Orders Only Cardiology Diagnostics ProviderCedric MD [address] [place] [id number] Social History Tobacco Use Types Packs/Day Years Used Date Smoking Tobacco: Former Alcohol Use Standard Drinks/Week Comments Yes 0 (1 standard drink = 0.6 oz pur e alcohol) Comments Unknown Sex and Gender Information Value Date Recorded Sex Assigned at Not on file Legal Sex Female 6:34 AM HEAD BOYS GOLF COACH Gender Identity Not on file Sexual Orientation Not on file documented as of this encounter Plan of Treatment Not on file documented as of this encounter Procedures Procedure Name Priority Date/Time Associated Diagnosis Comments CARDIOLOGY REPORT 01/10/2017 documented in this encounter Results * CARDIOLOGY REPORT (01/10/2017) Anatomical Region Laterality Modality Other Narrative 01/10/2017 Ordered by an unspecified provider. us Historical Provider [facility] Final Result documented in this encounter Visit Diagnoses Not on filedocumented in this encounter Additional Health Concerns Infection Onset Date Last Indicated Resolved Time COVID: Suspected 10/11/2023 10/11/2023 10/11/2023 4:40 PM HEAD BOYS GOLF COACH COVID: Suspected 03/07/2024 03/07/2024 03/07/2024 3:43 PM CDT COVID: Suspected 04/08/2024 04/08/2024 04/08/2024 1:14 PM CDT MRSA 04/09/2024 04/09/2024 10/06/2024 3:05 AM HEAD BOYS GOLF COACH COVID: Suspected 05/19/2024 05/19/2024 05/19/2024 3:19 PM CDT documented as of this encounter Care Teams Stable Hand Relationship Specialty Start Date End Date Yissel Hampton DO [address] [place] [address] PCP - General 01/11/17 Yissel Hamptno DO [address] [place] [address] PCP - General 11/08/11 01/10/17 Varun Uribe MD [address] [place] [address] [facility] Cardiology 07/22/23 Chilo Do MD [address] [address] Surgeon Vascular Surgery 03/17/24 Cesar Mcdonough MD [address] [place] [address] Medical Oncologist/Hematologis t Hematology and Oncology 05/21/24 Jalen Strickland MD [address] [facility] [address] [place] [address] Consulting Physician Pulmonary Disease 07/02/24 Rimma Adames MD [address] [facility] [address] [place] [address] Consulting Physician Otolaryngology 07/02/24 documented as of this encounter
--- OUTSIDE RECORDS SUMMARY | 2025-07-03 07:57 | XMS_ITS | Encounter Summary ---
Author Organization [facility] Address [address] [place] [address] Care Team Providers Care Accounting Office Manager Name Role Phone BertaYissel alejandra Primary Care Provider [phone] [place], Yissel Megan DO Unavailable [phone] Encounter Details Date Type Department Care Team (Late st Contact Info) Description 10/26/2021 Lab Requisition [facility] D[facility] [address] [place] [address] Adriel Fernandez Jr., MD [address] [place] [address] Social History Tobacco Use Types Packs/Day Years Used Date Smoking Tobacco: Former Smokeless Tobacco: Never Alcohol Use Standard Drinks/Week Comments Yes 0 (1 standard drink = 0.6 oz pur e alcohol) AUDIT-C Answer Date Recorded Q1: How often do you have a drink containing alcohol? 4 or more times a week 11/22/2020 Average Number of Drinks Not on file 021 Frequency of Binge Drinking Not on file 06/2021 Comments No Sex and Gender Information Value Date Recorded Sex Assigned at Not on file Legal Sex Female 5:28 AM HEALTH DATA ADMINISTRATOR Gender Identity Not on file Sexual Orientation Not on file documented as of this encounter Plan of Treatment Not on file documented as of this encounter Procedures Procedure Name Priority Date/Time Associated Diagnosis Comments DERMATOPATHOLOGY Routine 10/25/2021 12:0 0 AM HEALTH DATA ADMINISTRATOR documented in this encounter Results * DERMATOPATHOLOGY (10/25/2021 12:00 AM HEALTH DATA ADMINISTRATOR) Case Report Dermatopathology Report Case: [id number] Authorizing Provider: Adriel Fernandez Jr., MD Collected: 10/25/2021 12:00 AM Ordering Location: [facility] Derm[facility] Lab Received: 10/26/2021 12:22 PM Pathologist: Amelia Marin MD Specimens: A) - Skin, right anterior proximal upper arm B) - Skin, middle sternum 1:08 PM [facility] DERMATOP[facility] Final Diagnosis Specimen A. SKIN, right anterior proximal upper arm: ACTINIC KERATOSIS (L57.0) Specimen B. SKIN, middle sternum: BENIGN VERRUCOUS KERATOSIS, INFLAMED (L82.1) EPIDERMAL NECROSIS SUGGESTIVE OF EXCORIATION (L98.499) 1:08 PM [facility] DERMATOPATHOLOGY [facility]ORAT[facility] at [address] HEALTH DATA ADMINISTRATOR Clinical History A: Superficial basal cell carcinoma vs actinic keratosis vs Houston's disease. B: Inflamed seborrheic keratosis vs verruca vulgaris vs squamous cell carcinoma. . 1:08 PM [facility]ERMATOP[facility] Gross Description Specimen A: Received is one formalin filled container labeled with the patient's name and designated right anterior proximal upper arm. The specimen consists of a shave biopsy measuring [id number]. Jar 0. Specimen B: Received is one formalin filled container labeled with the patient's name and designated middle sternum. The specimen consists of a shave biopsy measuring [id number]. Jar 0. 1:08 PM [facility] DERMATOPATHOLOGY [facility] Microscopic Description Specimen A. SKIN, right anterior proximal upper arm: There is focal parakeratosis. The lower half of the epidermis shows disorderly maturation of keratinocytes with nuclear pleomorphism. Specimen B. SKIN, middle sternum: Sections show hyperkeratosis, papillomatosis, hypergranulosis, and acanthosis. Inflammatory cells are present within the dermis. These histological findings can be seen in a verruca vulgaris or a seborrheic keratosis. The epidermis is focally necrotic and covered with a scale-crust. There is fibrin at the base. 1:08 PM [facility]ERMAT[facility] Disclaimer An external and internal positive and negative controls are appropriate for the histochemical, immunohistochemical and immunofluorescence stain(s) in this case (if any), except where stated explicitly. The performance characteristics of the stain(s) cited in this report were developed and its performance characteristic determined by the Dermatopathology Laboratory at [facility], directed by Dr. Karson Marin. These tests need not be, and therefore are not, approved by the [place] Food and Drug Administration. The tests are used for clinical purposes. Billing Codes Specimen Charges Stain Charges 31549 68850 1 1 2 1:08 PM HEALTH DATA ADMINISTRATOR DERMATOPATHOLOGY LABORATORY Embedded Images 2 1:08 PM HEALTH DATA ADMINISTRATOR DERMATOPATHOLOGY LABORATORY Pathology/Cytology TISSUE SPECIMEN FROM SKIN / Unknown 10/25/2021 10/26/2021 12:22 PM HEALTH DATA ADMINISTRATOR Miscellaneous samples (specimen) TISSUE SPECIMEN FROM SKIN / Unknown 10/25/2021 10/26/2021 12:22 PM HEALTH DATA ADMINISTRATOR Adriel Fernandez Jr., MD LAB - PATHOLOGY/CYTOLOG Y ORDERABLES Final Result DERMATOPATHOLOGY LABORATORY [facility] - Department of Dermatology [facility] [address] [place] [address], [address] [phone] documented in this encounter Visit Diagnoses Not on filedocumented in this encounter Care Teams Accounting Office Manager Relationship Specialty Start Date End Date Yissel Hampton DO [address] [facility] [place] [address] PCP - General 12/03/08 Yissel Hampton DO [address] [facility] [address] [place] [address] 12/03/08 documented as of this encounter
--- OUTSIDE RECORDS SUMMARY | 2025-07-03 07:57 | XMS_ITS | Clinical Summary ---
Author Organization [facility] Address [address] [place] [address] Phone Care Team Providers Care Pharmacist Critical Care Name Role Phone Yissel Hampton DO Primary Care Provider [phone] Allergies Active Allergy Reactions Criticality Noted Date Comments Levofloxacin Nausea and Vomiting Medium 03/08/2011 Medications verapamil (VERELAN) 180 mg Sustained Release 24 hour capsule Take 180 mg by mouth daily. Active warfarin (COUMADIN) 2.5 mg tablet Take 2.5 mg by mouth daily. Active traMADol (ULTRAM) 50 mg tablet Take 100 mg by mouth every 6 hours as needed for Pain. Active PRASTERONE, DHEA, (DHEA ORAL) Take by mouth. Activ e montelukast (SINGULAIR) 10 mg tablet Take 10 mg by mouth daily at bedtime. Active acetaminophen-c odeine (TYLENOL #3) 300-30 mg tablet TAKE 1-2 TABLETS BY MOUTH EVERY 4 HOURS NEEDED 50 Tablet 12/06/2023 2:10 PM RESIDENTIAL CASE MANAGER 4 Active atorvastatin (LIPITOR) 10 mg tablet Take 1 Tablet by mouth daily at bedtime. Active aspirin (NINA CHEWABLE) 81 mg Tablet, Chewable Take 81 mg by mouth daily. Active cholecalciferol , Vitamin D3, 125 mcg (5,000 unit) Capsule Take 1,000 Units by mouth daily. Active Trelegy Ellipta 200-62.5-25 mcg Disk with Device Take 1 Puff by inhalation daily. Active losartan (COZAAR) 50 mg tablet Take 50 mg by mouth daily. 4 Active omega-3 acid ethyl esters (LOVAZA) 1 gram Capsule Take 1 Capsule by mouth daily with breakfast. Active VITAMIN B COMPLEX ORAL Take 1 Capsule by mouth daily. Active naloxone (NARCAN) 4 mg/spray [place], Non-Aerosol EMERGENCY USE ONLY: Administer 1 spray (4 mg) in one nostril one time. May repeat in alternating nostrils every 2-3 min until responsive or EMS arrives. 2 Each 3 4 Active Active Problems Problem Noted Date Diagnosed Date Left carotid stenosis 01/06/2024 Aphasia 01/05/2024 History of pacemaker 01/05/2024 Stenosis of left carotid artery 01/05/2024 Stroke-like episode 01/04/2024 Slurred speech 01/04/2024 Carotid disease, bilateral 07/26/2022 Overview (01/04/2024): Last Assessment & Plan: Unstable Referral to Dr. Do Paroxysmal atrial fibrillation 07/26/2022 Overview (01/04/2024): Last Assessment & Plan: Stable Continue Eliquis Primary hypertension 11/19/2019 Overview (01/04/2024): Last Assessment & Plan: Stable Continue hydrochlorothiazide losartan verapamil Complications, mechanical, pacemaker, cardiac Overview (01/04/2024): Added automatically from request for surgery [id number] SSS (sick sinus syndrome) 06/29/2019 Overview (01/04/2024): Added automatically from request for surgery [id number] Last Assessment & Plan: Continue clinical observation Atrial flutter 10/22/2017 Overview (01/04/2024): Last Assessment & Plan: Pacemaker assessment reveals recurrent episodes of atrial flutter fibrillation for which she is on Coumadin therapy Chronic obstructive pulmonary disease 10/20/2017 Overview (01/04/2024): Last Assessment & Plan: Stable Mixed hyperlipidemia 10/20/2017 Overview (01/04/2024): Last Assessment & Plan: Stable Continue Lipitor Coronary artery disease invo lving [place] coronary artery of [place] heart without angina pectoris 04/08/2017 Overview (01/04/2024): Prior NSTEMI Cardiac cath 2009, 90% Dx1, patent LAD, patent CIRC, Moderate disease RCA. Nuclear stress , 03/2017, nl LVEF, normal myocardial perfusion Last Assessment & Plan: Stable Continue aspirin, Lipitor, sublingual nitro History of non-ST elevation myocardial infarctio n (NSTEMI) 04/08/2017 Sinoatrial node dysfunction 08/27/2014 Overview (01/04/2024): Sinus node dysfunction, status post pacemaker Last Assessment & Plan: Continue transtelephonic monitoring of pacemaker Actinic keratosis 01/13/2014 Social History Tobacco Use Types Packs/Day Years Used Date Smoking Tobacco: Former Smokeless Tobacco: Never Alcohol Use Standard Drinks/Week Comments Yes 2 (1 standard drink = 0.6 oz pur e alcohol) Feeling Safe Answer Date Recorded Are you in a relationship wi th someone who hurts you emotionally and/or physically? No 01/04/2024 Food Insecurity Answer Date Recorded Social/Environmental Concerns No concerns;[place] t declined 01/04/2024 Transportation Needs Answer Date Record ed Social/Environmental Concerns No concerns;[place] t declined 01/04/2024 Housing Stability Answer Date Recorded Social/Environmental Concerns No concerns;[place] t declined 01/04/2024 Utility Needs Answer Date Recorded Social/Environmental Concerns No concerns;[place] t declined 01/04/2024 Comments No Sex and Gender Information Value Date Recorded Sex Assigned at Not on file Legal Sex Female 2:00 PM RESIDENTIAL CASE MANAGER Gender Identity Not on file Sexual Orientation Not on file Last Filed Vital Signs Vital Sign Reading Time Taken Comments Blood Pressure 155/61 01/07/2024 8:30 AM CDT Pulse 86 01/07/2024 8:30 AM CDT Temperature 36.9 C (98.4 F) 01/07/2024 8:30 AM CDT Respiratory Rate 18 01/07/2024 8:30 AM CDT 1 8 Oxygen Saturation 98% 01/07/2024 8:30 AM CDT Inhaled Oxygen Concentration - - Weight 58.1 kg (128 lb) 01/07/2024 12:54 AM CDT Height 162.6 cm (5' 4) 01/04/2024 12:27 PM CDT Body Mass Index 21.97 01/04/2024 12:27 PM CDT Plan of Treatment Health Maintenance Due Date Last Done Comments DTAP/TDAP/TD VACCINES (1 - Tdap) 1959 PNEUMOCOCCAL VACCINE 50+ YEA RS (1 of 2 - PCV) 1959 ZOSTER VACCINE (1 of 2) 1990 RSV VACCINE (60+ or ) (1 - 1-dose 75+ series) 2015 OSTEOPOROSIS SCREENING 04/12/2021 04/12/2016 INFLUENZA VACCINE (#1) 2025 COVID-19 Vaccine ( season) 06/14/202512/2020, 11/23/2020 Medical Devices Implanted Type Area Upholstered Goods Crafter Device Identifier Shelf Expiration Date Model / Serial / Lot Medtronic Godfrey [address] Dr Varela Surescan Pacemaker Pacemaker MEDTRONIC - COVIDIEN [id number] / [id number] / Description: CONDITONAL @ 1.5 & 3T - 01/06/2024 Insurance MEDICARE PART A AND B GENERIC PAYOR GENERIC PAYOR RX [facility] Medicare Part D Advance Directives For more information, please contact: [phone] * Full Code (Latest Code Status on File) Date Activated Date Inactivated Comments 01/04/2024 2:34 PM 01/07/2024 2:26 PM * Default Full Code - Needs Discussion Date Activated Date Inactivated Comments 01/04/2024 1:56 PM 01/04/2024 2:34 PM Care Teams Pharmacist Critical Care Relationship Specialty Start Date End Date Yissel Hampton DO [address] [place] [address] PCP - General Family Practice 10/31/17
[2025-07-03 08:13] LABS: Hematocrit 33.7 % (37.0-47.0); Hemoglobin 11.0 g/dL (12.0-15.0); Immature Granulocyte Percent A 1.0 % (0-0.5); Lymphocytes Absolute Auto 2.62 K/mm3 (0.9-3.2); Mean Corpuscular HGB Conc 32.6 g/dl (32-36); Mean Corpuscular Hemoglobin 30.1 pg (26-34); Mean Corpuscular Volume 92.1 fl (80-100); Nucleated Red Blood Cells Absolute Auto 0.000 K/mm3 (0.0-0.012); Nucleated Red Blood Cells Perc 0.0 % (0.0-0.2); Platelet Count Result 315 k/mm3 (150-375); Red Blood Count 3.66 M/mm3 (4.2-5.4); White Blood Count 16.4 K/mm3 (4.5-10.0)
[2025-07-03 08:32] LABS: Alanine Aminotransferase 29 U/L (6-35); Albumin Level 4.0 g/dL (3.5-5.1); Alkaline Phosphatase 111 U/L (38-126); Anion Gap 7 mmol/L (4-12); Aspartate Amino Transferase 55 U/L (14-36); Bilirubin,Total 0.4 mg/dL (0.2-1.3); Blood Urea Nitrogen 31 mg/dL (7-17); Calcium 9.5 mg/dL (8.4-10.2); Carbon Dioxide 29 mmol/L (22-30); Chloride 103 mmol/L (98-107); Estimated CRCL calculation 31 ml/min; Estimated Glomerular Filt Rate 50; Glucose 88 mg/dL (65-110); Potassium 4.0 mmol/L (3.4-5.0); Sodium 139 mmol/L (137-145); Total Protein 7.1 g/dL (6.3-8.2)
[2025-07-03 08:39] LABS: INR 1.3; Prothrombin Time 16.1 Seconds (11.1-14.7)
[2025-07-03 08:40] LABS: Partial Thromboplastin Time 32.4 Seconds (22.3-36.8)
[2025-07-03 08:42] LABS: Estimated CRCL calculation 27 ml/min; Estimated Glomerular Filt Rate 43
[2025-07-03] MEDS: CEPHALEXIN 500 MG CAPSULE PO (11:49)
[2025-07-03] MEDS: CELLULOSE OXIDIZED 2 x 3 INCH 1 PKT XX (11:50)
[2025-07-03 11:51] VITALS: BP 214/66; PULSE 71; RESP 17; O2SAT 98
== END 2025-07-03 11:59 | disposition home or self-care (01) ==
PROVIDERS: Emergency Provider Emergency Medicine
DX: L76.22 Postprocedural hemorrhage of skin and subcutaneous tissue following other procedure (principal); I48.91 Unspecified atrial fibrillation; Z79.01 Long term (current) use of anticoagulants; Y83.8 Other surgical procedures as the cause of abnormal reaction of the patient, or of later complication, without mention of misadventure at the time of the procedure; J38.3 Other diseases of vocal cords
CPT/HCPCS: 12002; 36415; 70491; 80053; 85025; 85610; 85730; 99284; A9270; Q9967